=== PATIENT | female | born 2000 | race Caucasian/White ===

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

== ENCOUNTER → 2019-03-16 | Outpatient (CLI) | payer BC, MEDICAID ==
[2019-03-16 10:45] LABS: BASO # 0.1 10^3/uL (0.0-0.2); BASO % 0.6 % (0.0-1.0); EOS # 0.3 10^3/uL (0.0-0.50); EOS % 3.3 % (0.0-3.0); HEMATOCRIT 37.6 % (36.0-47.0); HEMOGLOBIN 12.5 g/dl (12.0-15.5); LYMPH # 2.2 10^3/uL (1.5-6.5); LYMPH % 27.1 % (24.0-44.0); MEAN CORPUSCULAR HEMOGLOBIN 28.6 pg (27.0-33.0); MEAN CORPUSCULAR HGB CONC 33.2 g/dl (32.0-36.5); MONO # 0.4 10^3/uL (0.0-0.8); MONO % 5.3 % (0.0-5.0); NEUTROPHILS # 5.1 10^3/uL (1.8-7.7); NEUTROPHILS % 63.5 % (36.0-66.0); PLATELET COUNT, AUTOMATED 319 10^3/uL (150-450); RED BLOOD COUNT 4.37 10^6/uL (4.00-5.40); WHITE BLOOD COUNT 8.1 10^3/uL (4.0-10.0)
[2019-03-16 11:18] LABS: ALBUMIN 3.5 GM/DL (3.2-5.2); ALT/SGPT 9 U/L (12-78); BILIRUBIN,TOTAL 0.4 MG/DL (0.2-1.0); BLOOD UREA NITROGEN 13 MG/DL (7-18); CALCIUM LEVEL 8.6 MG/DL (8.5-10.1); CARBON DIOXIDE LEVEL 27 MEQ/L (21-32); CHLORIDE LEVEL 106 MEQ/L (98-107); CREATININE FOR GFR 0.87 MG/DL (0.55-1.30); GLUCOSE, FASTING 103 MG/DL (70-100); POTASSIUM SERUM 3.9 MEQ/L (3.5-5.1); RHEUMATOID FACTOR QUANT < 10.0 IU/ML (<15.0); SODIUM LEVEL 140 MEQ/L (136-145); TOTAL 25(OH) VITAMIN D 21.3 NG/ML (30.0-100.0); TOTAL PROTEIN 7.2 GM/DL (6.4-8.2)
[2019-03-16 11:23] LABS: ERYTHROCYTE SEDIMENTATION RATE 20 mm/hr (0-20)
[2019-03-17 14:11] LABS: ANTINUCLEAR ANTIBODIES DIRECT Negative (Negative)
== END ==
LOC: M LAB 10:18
PROVIDERS: ATTEND Psychiatry & Neurology Neurology
DX: R51 Headache (principal)

== ENCOUNTER → 2019-05-20 | Outpatient (CLI) | payer BC ==
[2019-05-20 09:36] LABS: FREE T4 0.94 NG/DL (0.78-1.33)
[2019-05-20 09:42] LABS: HCG, SERUM QUALITATIVE NEGATIVE (NEGATIVE)
== END ==
LOC: M LAB 08:32
PROVIDERS: ATTEND Advanced Practice Midwife
DX: N92.6 Irregular menstruation, unspecified (principal)

== ENCOUNTER → 2021-06-14 | Outpatient (REF) | payer BC | LOC: M SFHCPLAZ 12:53 | PROVIDERS: ATTEND Family Medicine | DX: Z12.4 Encounter for screening for malignant neoplasm of cervix (principal); R87.610 Atypical squamous cells of undetermined significance on cytologic smear of cervix (ASC-US) | CPT/HCPCS: 87624; G0123 ==

== ENCOUNTER → 2021-08-24 | Outpatient (CLI) | payer BC ==
[2021-08-24 11:16] LABS: BASO % 0.4 % (0.0-1.0); EOS # 0.2 10^3/uL (0.0-0.5); EOS % 2.2 % (0.0-3.0); HEMATOCRIT 37.2 % (36.0-47.0); HEMOGLOBIN 11.9 g/dl (12.0-15.5); LYMPH # 1.6 10^3/uL (1.5-5.0); LYMPH % 23.8 % (24.0-44.0); MEAN CORPUSCULAR HEMOGLOBIN 28.3 pg (27.0-33.0); MEAN CORPUSCULAR VOLUME 88.6 fl (80.0-96.0); MONO # 0.5 10^3/uL (0.0-0.8); MONO % 7.2 % (2.0-8.0); NEUTROPHILS # 4.4 10^3/uL (1.5-8.5); NEUTROPHILS % 66.1 % (36.0-66.0); PLATELET COUNT, AUTOMATED 249 10^3/uL (150-450); WHITE BLOOD COUNT 6.7 10^3/uL (4.0-10.0)
[2021-08-24 12:19] LABS: HEPATITIS C VIRUS ABY INDEX < 0.0 INDEX (<0.8); HIV 1&2 SCREEN CENTAUR NEGATIVE (NEGATIVE)
[2021-08-24 13:38] LABS: GC DNA AMPLIFICATION NEGATIVE (NEGATIVE)
== END ==
LOC: M PLALAB 08:59
PROVIDERS: ATTEND Obstetrics & Gynecology
DX: Z86.69 Personal history of other diseases of the nervous system and sense organs (principal)

== ENCOUNTER 2021-09-17 20:27 | Emergency (ER) | payer BC ==
[~2021-09-17] VITALS: Ht 165.1 cm; Wt 64.5 kg
[2021-09-17 20:28] VITALS: BP 119/76
[2021-09-18] MEDS ORDERED: BUTA1CAP PO (12:30)
[2021-09-18] MEDS ORDERED: ZYRTTAB8 PO (12:30)
[2021-09-18] MEDS ORDERED: ONDA4TAB6 PO (19:00)
[2021-09-18] MEDS ORDERED: KETO10TAB PO (19:00)
== END 2021-09-17 22:15 | disposition left against medical advice (07) ==
LOC: M ED 20:27
DX: Z53.29 Procedure and treatment not carried out because of patient's decision for other reasons (principal)

== ENCOUNTER 2021-09-18 11:35 | Emergency (ER) | payer BC ==
[~2021-09-18] VITALS: Ht 165.1 cm; Wt 63.7 kg
--- OUTSIDE RECORDS SUMMARY | 2021-09-18 11:43 | CCD ---
Author Author [facility] Organization [facility] Address Unknown Phone Unavailable Care Team Providers Care Veterinarian Assistant Name Role Phone Uli SWAIN MD Unavailable Unavailable Uli SWAIN MD Unavailable Unavailable Uli SWAIN MD Unavailable Unavailable Uli SWAIN MD Unavailable Unavailable Uli SWAIN MD Unavailable Unavailable Uli SWAIN MD Unavailable Unavailable Uli SWAIN MD Unavailable Unavailable Uli SWAIN MD Unavailable Unavailable Uli SWAIN MD Unavailable Unavailable Uli SWAIN MD Unavailable Unavailable Uli SWAIN MD Unavailable Unavailable Uli SWAIN MD Unavailable Unavailable Uli SWAIN MD Unavailable Unavailable Uli SWAIN MD Unavailable Unavailable Uli SWAIN MD Unavailable Unavailable Uli SWAIN MD Unavailable Unavailable Uli SWAIN MD Unavailable Unavailable Uli SWAIN MD Unavailable Unavailable Uli SWAIN MD Unavailable Unavailable Uli SWAIN MD Unavailable Unavailable Uli SWAIN MD Unavailable Unavailable SWAIN, C GRAHAME MD Unavailable Unavailable SWAIN, C GRAHAME MD Unavailable Unavailable SWAIN, C GRAHAME MD Unavailable Unavailable SWAIN, C GRAHAME MD Unavailable Unavailable SWAIN, C GRAHAME MD Unavailable Unavailable SWAIN, C GRAHAME MD Unavailable Unavailable SWAIN, C GRAHAME MD Unavailable Unavailable SWAIN, C GRAHAME MD Unavailable Unavailable SWAIN, C GRAHAME MD Unavailable Unavailable SWAIN, C GRAHAME MD Unavailable Unavailable SWAIN, C GRAHAME MD Unavailable Unavailable SWAIN, C GRAHAME MD Unavailable Unavailable SWAIN, C GRAHAME MD Unavailable Unavailable SWAIN, C GRAHAME MD Unavailable Unavailable SWAIN, C GRAHAME MD Unavailable Unavailable SWAIN, C GRAHAME MD Unavailable Unavailable SWAIN, C GRAHAME MD Unavailable Unavailable SWAIN, C GRAHAME MD Unavailable Unavailable SWAIN, C GRAHAME MD Unavailable Unavailable SWAIN, C GRAHAME MD Unavailable Unavailable SWAIN, C GRAHAME MD Unavailable Unavailable SWAIN, C GRAHAME MD Unavailable Unavailable SWAIN, C GRAHAME MD Unavailable Unavailable SWAIN, C GRAHAME MD Unavailable Unavailable SWAIN, C GRAHAME MD Unavailable Unavailable SWAIN C GRAHAME MD Unavailable Unavailable SWAIN, C GRAHAME MD Unavailable Unavailable SWAIN C GRAHAME MD Unavailable Unavailable SWAIN, C GRAHAME MD Unavailable Unavailable SWAIN C GRAHAME MD Unavailable Unavailable SWAIN, C GRAHAME MD Unavailable Unavailable SWAIN C GRAHAME MD Unavailable Unavailable SWAIN C GRAHAME MD Unavailable Unavailable SWAIN C GRAHAME MD Unavailable Unavailable SWAIN C GRAHAME MD Unavailable Unavailable SWAIN C GRAHAME MD Unavailable Unavailable SWAIN C GRAHAME MD Unavailable Unavailable SWAIN, C GRAHAME MD Unavailable Unavailable SWAIN, C GRAHAME MD Unavailable Unavailable SWAIN, C GRAHAME MD Unavailable Unavailable PICKERAL JR J GILL PA-C Unavailable Unavailable PICKERAL JR J GILL PA-C Unavailable Unavailable PICKERAL JR J GILL PA-C Unavailable Unavailable PICKERAL JR J GILL PA-C Unavailable Unavailable PICKERAL JR J GILL PA-C Unavailable Unavailable PICKERAL JR J GILL PA-C Unavailable Unavailable PICKERAL JR J GILL PA-C Unavailable Unavailable PICKERAL JR J GILL PA-C Unavailable Unavailable PICKERAL JR, J GILL PA-C Unavailable Unavailable PICKERAL JR, J GILL PA-C Unavailable Unavailable PICKERAL JR, J GILL PA-C Unavailable Unavailable PICKERAL JR, J GILL PA-C Unavailable Unavailable PICKERAL JR, J GILL PA-C Unavailable Unavailable PICKERAL JR, J GILL PA-C Unavailable Unavailable PICKERAL JR, J GILL PA-C Unavailable Unavailable PICKERAL JR, J GILL PA-C Unavailable Unavailable PICKERAL JR, J GILL PA-C Unavailable Unavailable PICKERAL JR, J GILL PA-C Unavailable Unavailable PICKERAL JR, J GILL PA-C Unavailable Unavailable PICKERAL JR, J GILL PA-C Unavailable Unavailable PICKERAL JR, J GILL PA-C Unavailable Unavailable PICKERAL JR, J GILL PA-C Unavailable Unavailable PICKERAL JR, J GILL PA-C Unavailable Unavailable PICKERAL JR, J GILL PA-C Unavailable Unavailable PICKERAL JR, J GILL PA-C Unavailable Unavailable PICKERAL JR, J GILL PA-C Unavailable Unavailable PICKERAL JR, J GILL PA-C Unavailable Unavailable RUSTY, JENNY LAY Unavailable Unavailable RUSTY, JENNY LAY Unavailable Unavailable RUSTY, JENNY LAY Unavailable Unavailable RUSTY, JENNY LAY Unavailable Unavailable RUSTY, JENNY LAY Unavailable Unavailable RUSTY, JENNY LAY Unavailable Unavailable RUSTY, JENNY LAY Unavailable Unavailable RUSTY, JENNY LAY Unavailable Unavailable RUSTY, JENNY LAY Unavailable Unavailable RUSTY, JENNY LAY Unavailable Unavailable RUSTY, JENNY LAY Unavailable Unavailable RUSTY, JENNY LAY Unavailable Unavailable RUSTY, JENNY LAY Unavailable Unavailable RUSTY, JENNY LAY Unavailable Unavailable RUSTY, JENNY ALY Unavailable Unavailable RUSTY, JENNY LAY Unavailable Unavailable RUSTY, JENNY LAY Unavailable Unavailable RUSTY, JENNY LAY Unavailable Unavailable RUSTY, JENNY LAY Unavailable Unavailable RUSTY, JENNY LAY Unavailable Unavailable RUSTY, JENNY LAY Unavailable Unavailable RUSTY, JENNY LAY Unavailable Unavailable RUSTY, JENNY LAY Unavailable Unavailable RUSTY, JENNY LAY Unavailable Unavailable RUSTY, JENNY LAY Unavailable Unavailable RUSTY, JENNY LAY Unavailable Unavailable RUSTY, JENNY LAY Unavailable Unavailable RUSTY, JENNY LAY Unavailable Unavailable RUSTY, JENNY LAY Unavailable Unavailable RUSTY, JENNY LAY Unavailable Unavailable RUSTY, JENNY LAY Unavailable Unavailable RUSTY, JENNY LAY Unavailable Unavailable RUSTY, JENNY LAY Unavailable Unavailable RUSTY, JENNY LAY Unavailable Unavailable RUSTY, JENNY LAY Unavailable Unavailable RUSTY, JENNY LAY Unavailable Unavailable RUSTY, JENNY LAY Unavailable Unavailable RUSTY, JENNY LAY Unavailable Unavailable RUSTY, JENNY LAY Unavailable Unavailable RUSTY, JENNY LAY Unavailable Unavailable RUSTY, JENNY LAY Unavailable Unavailable RUSTY, JENNY LAY Unavailable Unavailable RUSTY, JENNY LAY Unavailable Unavailable TURRIN, JUSTO Unavailable Unavailable TURRIN, JUSTO Unavailable Unavailable TURRIN, JUSTO Unavailable Unavailable TURRIN, JUSTO Unavailable Unavailable Skipton, E Sadie MD Unavailable Unavailable Skipton, E Sadie MD Unavailable Unavailable Skipton, E Sadie MD Unavailable Unavailable Skipton, E Sadie MD Unavailable Unavailable Skipton, E Sadie MD Unavailable Unavailable Skipton, E Sadie MD Unavailable Unavailable Skipton, E Sadie MD Unavailable Unavailable Skipton, E Sadie MD Unavailable Unavailable Skipton, E Sadie MD Unavailable Unavailable Skipton, E Sadie MD Unavailable Unavailable Skipton, E Sadie MD Unavailable Unavailable Skipton, E Sadie MD Unavailable Unavailable Skipton, E Sadie MD Unavailable Unavailable Skipton, E Sadie MD Unavailable Unavailable Skipton, E Sadie MD Unavailable Unavailable Skipton, E Sadie MD Unavailable Unavailable Skipton, E Sadie MD Unavailable Unavailable Skipton, E Sadie MD Unavailable Unavailable Skipton, E Sadie MD Unavailable Unavailable Skipton, E Sadie MD Unavailable Unavailable Skipton, E Sadie MD Unavailable Unavailable Skipton, E Sadie MD Unavailable Unavailable Skipton, E Sadie MD Unavailable Unavailable Skipton, E Sadie MD Unavailable Unavailable Skipton, E Sadie MD Unavailable Unavailable Skipton, E Sadie MD Unavailable Unavailable Skipton, E Sadie MD Unavailable Unavailable Skipton, E Sadie MD Unavailable Unavailable Skipton, E Sadie MD Unavailable Unavailable Skipton, E Sadie MD Unavailable Unavailable Skipton, E Sadie MD Unavailable Unavailable Skipton, E Sadie MD Unavailable Unavailable Skipton, E Sadie MD Unavailable Unavailable Skipton, E Sadie MD Unavailable Unavailable Skipton, E Sadie MD Unavailable Unavailable Skipton, E Sadie MD Unavailable Unavailable Skipton, E Sadie MD Unavailable Unavailable Skipton, E Sadie MD Unavailable Unavailable Skipton, E Sadie MD Unavailable Unavailable Skipton, E Sadie MD Unavailable Unavailable Skipton, E Sadie MD Unavailable Unavailable Skipton, E Sadie MD Unavailable Unavailable Skipton, E Sadie MD Unavailable Unavailable Skipton, E Sadie MD Unavailable Unavailable Skipton, E Sadie MD Unavailable Unavailable Skipton, E Sadie MD Unavailable Unavailable Skipton, E Sadie MD Unavailable Unavailable Skipton, E Sadie MD Unavailable Unavailable Skipton, E Sadie MD Unavailable Unavailable Skipton, E Sadie MD Unavailable Unavailable Skipton, E Sadie MD Unavailable Unavailable Skipton, E Sadie MD Unavailable Unavailable Skipton, E Sadie MD Unavailable Unavailable Skipton, E Sadie MD Unavailable Unavailable Skipton, E Sadie MD Unavailable Unavailable Skipton, E Sadie MD Unavailable Unavailable Skipton, E Sadie MD Unavailable Unavailable Skipton, E Sadie MD Unavailable Unavailable Skipton, E Sadie MD Unavailable Unavailable Skipton, E Sadie MD Unavailable Unavailable Re-disclosure Warning The records that you are about to access may contain information from federally-assisted alcohol or drug abuse programs. If such information is present, then the following federally mandated warning applies: This information has been disclosed to you from records protected by federal confidentiality rules (42 CFR part 2). The federal rules prohibit you from making any further disclosure of this information unless further disclosure is expressly permitted by the written consent of the person to whom it pertains or as otherwise permitted by 42 CFR part 2. A general authorization for the release of medical or other information is NOT sufficient for this purpose. The Federal rules restrict any use of the information to criminally investigate or prosecute any alcohol or drug abuse patient.The records that you are about to access may contain highly sensitive health information, the redisclosure of which is protected by Article 27-F of the [facility] Public Health law. If you continue you may have access to information: Regarding HIV / AIDS; Provided by facilities licensed or operated by the [facility] Office of Mental Health; or Provided by the [facility] Office for People With Developmental Disabilities. If such information is present, then the following [facility] mandated warning applies: This information has been disclosed to you from confidential records which are protected by state law. State law prohibits you from making any further disclosure of this information without the specific written consent of the person to whom it pertains, or as otherwise permitted by law. Any unauthorized further disclosure in violation of state law may result in a fine or long-term sentence or both. A general authorization for the release of medical or other information is NOT sufficient authorization for further disc losure. Family History Family Member Name Family Member Gender Family Member Status Date o f Status Description Data Source(s) Unknown Unknown Problem [facility]ENT ([facility]) Unknown Female Problem MEDENT ([facility]) Encounters Encounter Providers Location Date Indications Data Source(s ) Emergency Attender: JUSTO REALConsultant: Sadie metz MD 09/17/2021 10:56:00 PM EST - 09/18/2021 12:36:00 AM EST [facility] Patient discharged. Outpatient Attender: GILL webb 09/16/2021 07:25:00 AM EST MEDENT ([facility] ( [facility]) [facility] OB [address] [place] [address] 08/24/2021 12:00:00 AM EDT eCW1 ([facility]) Outpatient Attender: JENNY OJEDA MD Main office - [facility] n 08/06/2021 03:30:00 PM EDT MEDENT ([facility]) Unknown [address] [facility] [place] [address] 08/06/2021 12:00:00 AM EDT eCW1 [facility]) Outpatient Attender: SOULEYMANE SWAIN MD [id number] 08/02/2021 12:00:00 AM [facility] Unknown [address] [place] [address] 06/21/2021 12:00:00 AM EDT eCW1 ([facility]) Outpatient [address] [facility] [place] [address] 06/15/2021 12:00:00 AM EDT eCW1 ([facility]) Outpatient [address] [facility] [place] [address] 06/14/2021 12:00:00 AM EDT eCW1 ([facility]) Outpatient Attender: JENNY OJEDA MD Main office - [facility] n 06/04/2021 10:45:00 AM EDT MEDENT ([facility]) Outpatient Attender: JENNY OJEDA MD Main office - [facility] n 12/26/2020 06:45:00 AM EST MEDENT ([facility]) Immunizations Vaccine Date Status Description Data Source(s) Tdap 06/14/2021 09:32:00 AM EDT completed e CW1 ([facility]) Tdap 06/14/2021 09:32:00 AM EDT completed e CW1 ([facility]) Tdap 06/14/2021 09:32:00 AM EDT completed e CW1 ([facility]) Tdap 06/14/2021 09:32:00 AM EDT completed e CW1 ([facility]) Tdap 06/14/2021 09:32:00 AM EDT completed e CW1 ([facility]) COVID-19 VACCINE Moderna 01/16/2021 12:00:00 AM EDT completed [facility] Vaccine Series Complete: YESThis Data wa s Submitted to [facility] Via [employer]. COVID-19 VACCINE, MRNA-1273, LNP-S (MODERNA)/PF 01/16/2021 1 2:00:00 AM EDT completed [facility] COVID-19 VACCINE Moderna 12/22/2020 12:00:00 AM EST completed [facility] Vaccine Series Complete: NOThis Data was Submitted to [facility] Via [employer]. COVID-19 VACCINE, MRNA-1273, LNP-S (MODERNA)/PF 12/22/2020 1 2:00:00 AM EST completed [facility] Medications Medication Brand Name Start Date Product Form Dose Route Admi nistrative Instructions Pharmacy Instructions Status Indications Reaction Description Data Source(s) 500 mg 09/16/2021 12:00:00 AM EST tablet 5 TAKE ONE TABLET BY MOUTH EVERY DAY FOR 5 DAYS TAKE ONE TABLET BY MOUTH EVERY DAY FOR 5 DAYS SOLD: 09/16/2021 [facility] Azithromycin 500 MG Oral Tablet Azithromycin 09/16/2021 12:00:[address] ORAL active MEDENT ([facility]) Acetaminophen 325 MG / butalbital 50 MG / Caffeine 40 MG Oral Capsule Phyqinnebt-YYOL-Vziwlyxz 50-325-40 MG Ctpilkpumf-QJLF-Etacvuwb 50-325-40 MG 08/24/2021 12:00:00 AM EDT 1.0 {capsule_as_needed} active Wyyljwvgnb-VLQR-Jikpcicf 50-325-40 MG eCW1 ([facility]) doxylamine succinate 10 MG / Pyridoxine Hydrochloride 10 MG Delayed Release Oral Tablet Doxylamine-Pyridoxine 10-10 MG Doxylamine-Pyridoxine 10-10 MG 08/24/2021 12:00:00 AM EDT active Doxylami ne-Pyridoxine 10-10 MG eCW1 ([facility]) Acetaminophen 325 MG / butalbital 50 MG / Caffeine 40 MG Oral Capsule 50-325-40 mg BUTALB/ACETAMINOPHEN/CAFFEINE 08/24/2021 12:00:00 AM EDT capsule 3 0 TAKE ONE CAPSULE BY MOUTH EVERY 4 HOURS NEEDED TAKE ONE CAPSULE BY MOUTH EVERY 4 HOURS NEEDED SOLD: 08/24/2021 [facility] 60 mcg (15 mcg x 4)/0.5 mL 08/14/2021 12:00:00 AM EDT syring e 0 INJECT DIRECTED INJECT DIRECTED SOLD: 08/14/2021 [facility] Cyclobenzaprine hydrochloride 5 MG Oral Tablet CYCLOBENZAPRI NE HCL 06/04/2021 12:00:00 AM EDT tablet 30 TAKE ONE TABLET BY MOUTH EVERY DAY NEEDED TAKE ONE TABLET BY MOUTH EVERY DAY NEEDED SOLD: 06/20/2021 [facility] 800 mg 05/28/2021 12:00:00 AM EDT tablet 14 TAKE ONE TABLET BY MOUTH TWICE A DAY NEEDED FOR HEAD AND NECK PAIN OR HEADACHES TAKE ONE TABLET BY MOUTH TWICE A DAY NEEDED FOR HEAD AND NECK PAIN OR HEADACHES SOLD: 05/29/2021 [facility] Cyclobenzaprine hydrochloride 5 MG Oral Tablet CYCLOBENZAPRI NE HCL 04/10/2021 12:00:00 AM EDT tablet 30 TAKE ONE TABLET BY MOUTH EVERY DAY NEEDED TAKE ONE TABLET BY MOUTH EVERY DAY NEEDED SOLD: 04/22/2021 [facility] Volnea 28 Day Pack 0.15-0.02 mgx21 /0.01 mg x 5 DESOG-E.ESTR ADIOL/E.ESTRADIOL 03/30/2021 12:00:00 AM EDT tablet 84 TAKE ONE TABLE T BY MOUTH EVERY DAY TAKE ONE TABLET BY MOUTH EVERY DAY SOLD: 04/03/2021 [facility] 300 mg 03/08/2021 12:00:00 AM EDT capsule 14 TAKE ONE CAPSULE BY MOUTH EVERY 12 HOURS FOR 7 DAYS TAKE ONE CAPSULE BY MOUTH EVERY 12 HOURS FOR 7 DAYS SO LD: 03/08/2021 [facility] 800 mg 01/29/2021 12:00:00 AM EDT tablet 14 TAKE ONE TABLET BY MOUTH TWICE A DAY NEEDED FOR HEAD AND NECK PAIN OR HEADACHES TAKE ONE TABLET BY MOUTH TWICE A DAY NEEDED FOR HEAD AND NECK PAIN OR HEADACHES SOLD: 01/31/2021 [facility] 800 mg 01/29/2021 12:00:00 AM EDT tablet 14 TAKE ONE TABLET BY MOUTH TWICE A DAY NEEDED FOR HEAD AND NECK PAIN OR HEADACHES TAKE ONE TABLET BY MOUTH TWICE A DAY NEEDED FOR HEAD AND NECK PAIN OR HEADACHES SOLD: 02/21/2021 [facility] Cyclobenzaprine hydrochloride 5 MG Oral Tablet CYCLOBENZAPRI NE HCL 12/26/2020 12:00:00 AM EST tablet 30 TAKE ONE TABLET BY MOUTH EVERY DAY NEEDED TAKE ONE TABLET BY MOUTH EVERY DAY NEEDED SOLD: 12/27/2020 [facility] Cyclobenzaprine hydrochloride 5 MG Oral Tablet Cyclobenzapri ne HCL 12/26/2020 12:00:00 AM EST active David MCCLOUD ([facility] ) Cyclobenzaprine hydrochloride 5 MG Oral Tablet CYCLOBENZAPRI NE HCL 12/26/2020 12:00:00 AM EST tablet 30 TAKE ONE TABLET BY MOUTH EVERY DAY NEEDED TAKE ONE TABLET BY MOUTH EVERY DAY NEEDED SOLD: 02/28/2021 [facility] Volnea 28 Day Pack 0.15-0.02 mgx21 /0.01 mg x 5 DESOGE STREL-ETHINYL ESTRADIOL/ETHINYL ESTRADIOL 12/25/2020 12:00:00 AM EST tablet 84 TAKE ONE TABLET BY MOUTH EVERY DAY TAKE ONE TABLET BY MOUTH EVERY DAY SOLD: 12/25/2020 [facility] 800 mg 11/03/2020 12:00:00 AM EST tablet 14 TAKE ONE TABLET BY MOUTH TWICE A DAY NEEDED FOR HEAD AND NECK PAIN OR HEADACHES TAKE ONE TABLET BY MOUTH TWICE A DAY NEEDED FOR HEAD AND NECK PAIN OR HEADACHES SOLD: 11/06/2020 [facility] 800 mg 11/03/2020 12:00:00 AM EST tablet 14 TAKE ONE TABLET BY MOUTH TWICE A DAY NEEDED FOR HEAD AND NECK PAIN OR HEADACHES TAKE ONE TABLET BY MOUTH TWICE A DAY NEEDED FOR HEAD AND NECK PAIN OR HEADACHES SOLD: 01/01/2021 [facility] 100 mg 05/16/2020 12:00:00 AM EDT capsule 60 TAKE ONE CAPSULE BY MOUTH TWICE A DAY TAKE ONE CAPSULE BY MOUTH TWICE A DAY SOLD: 02/28/2021 [facility] 50 mg 05/16/2020 12:00:00 AM EDT capsule 60 TAKE ONE CAPSULE BY MOUTH TWICE A DAY TAKE ONE CAPSULE BY MOUTH TWICE A DAY SOLD: 02/28/2021 [facility] 100 mg 05/16/2020 12:00:00 AM EDT capsule 60 TAKE ONE CAPSULE BY MOUTH TWICE A DAY TAKE ONE CAPSULE BY MOUTH TWICE A DAY SOLD: 01/10/2021 [facility] 800 mg 05/15/2020 12:00:00 AM EDT tablet 14 TAKE ONE TABLET BY MOUTH TWICE A DAY NEEDED FOR HEAD AND NECK PAIN OR HEADACHES MAXIMUM DAILY DOSE =2 TAKE ONE TABLET BY MOUTH TWICE A DAY NEEDED FOR HEAD AND NECK PAIN OR HEADACHES MAXIMUM DAILY DOSE =2 SOLD: 09/06/2020 [facility] 0.15-0.02 mgx21 /0.01 mg x 5 02/10/2020 12:00:00 AM EDT tabl et 84 TAKE ONE TABLET BY MOUTH EVERY DAY TAKE ONE TABLET BY MOUTH EVERY DAY SOLD: 07/24/2020 [facility] 0.15-0.02 mgx21 /0.01 mg x 5 02/10/2020 12:00:00 AM EDT tabl et 84 TAKE ONE TABLET BY MOUTH EVERY DAY TAKE ONE TABLET BY MOUTH EVERY DAY SOLD: 10/23/2020 [facility] 100 mg 01/12/2020 12:00:00 AM EDT capsule 60 TAKE ONE CAPSULE BY MOUTH TWICE A DAY TAKE ONE CAPSULE BY MOUTH TWICE A DAY SOLD: 09/29/2020 [facility] 50 mg 01/11/2020 12:00:00 AM EDT capsule 60 TAKE ONE CAPSULE BY MOUTH TWICE A DAY (TAKEN WITH 100MG CAPSULES) TAKE ONE CAPSULE BY MOUTH TWICE A DAY (T AKEN WITH 100MG CAPSULES) SOLD: 01/10/2021 [facility] 50 mg 01/11/2020 12:00:00 AM EDT capsule 60 TAKE ONE CAPSULE BY MOUTH TWICE A DAY (TAKEN WITH 100MG CAPSULES) TAKE ONE CAPSULE BY MOUTH TWICE A DAY (T AKEN WITH 100MG CAPSULES) SOLD: 09/29/2020 [facility] Insurance Providers Payer name Policy type / Coverage type Policy ID Covered democrat ID Covered democrat's relationship to lewis Policy Lewis Plan Information [facility] Health Maintenance Organization (O) [id number] Family Dependent [id number] [employer] Commercial [id number] Family Dependent [id number] Blue Shield Commercial [id number] Family Dependent [id number] Blue Shield Commercial [id number] Family Dependent [id number] Blue Shield Commercial [id number] Family Dependent [id number] EXCELLUS C [id number] Child [id number] EXCELLUS H [id number] Child [id number] BS [place] [employer] FEDERAL [id number] FA2 [id number] BS [employer] Commercial [id number] Family Dependent EXCELLUS [facility] [id number] FA2 [id number] [facility] EM[employer]EE PRO[employer] [id number] FA2 [id number] ANSI-Commercial [id number] MEDICAID [id number] SP [id number] [facility] [facility] Health Maintenance Organization (HMO) [id number] Family Dependent [id number] Medicaid [place] Medigap Part B [id number] Self [id number] BLUE [employer] BLUE SHIELD FEDERAL -O/P [id number] [facility] Blue Shield Commercial [id number] Family Dependent [id number] Medicaid [place] Medigap Part B [id number] Self [id number] [facility] Health Maintenance Organization (HMO) [id number] Family Dependent [id number] [facility] [place] [employer] FEDERAL B [id number] C [id number] [employer] DOI 10/06/12 SP DOI 10/06/12 [facility] FEDERAL EMPLOYEE PROGRAM [id number] FA2 [id number] [facility] Health Maintenance Organization (HMO) [id number] Family Dependent [id number] Medicaid [place] Medigap Part B [id number] Self [id number] Medicaid [place] Medigap Part B [id number] Self [id number] [facility] Health Maintenance Organization (HMO) [id number] Dependent [id number] Problems, Conditions, and Diagnoses Code Display Name Description Problem Type Effective Dates Data Source(s) Z34.80 care Supervision of other normal Jessica jarquin 08/21/2021 12:00:00 AM EDT eCW1 ([facility]) Surgeries/Procedures Procedure Description Date Indications Data Source(s) OFFICE OUTPATIENT VISIT 15 MINUTES 09/16/2021 12:00:00 AM EST MEDENT ([facility]) OFFICE OUTPATIENT VISIT 25 MINUTES 08/06/2021 12:00:00 AM EDT MEDENT ([facility] ) Injection For Nerve Block, Greater Occipital Nerve 06/28/2021 12:00:00 AM EDT MEDENT ([facility], ) INJECTION ANES OTHER PERIPHERAL NERVE/BRANCH 12:00:00 AM EDT MEDENT ([facility], ) TDAP VACCINE 7/> YR IM 06/14/2021 12:00:00 AM EDT eCW1 ([facility]) OFFICE OUTPATIENT VISIT 25 MINUTES 06/04/2021 12:00:00 AM EDT MEDENT ([facility] ) Injection For Nerve Block, Greater Occipital Nerve 05/28/2021 12:00:00 AM EDT MEDENT ([facility] ) INJECTION ANES OTHER PERIPHERAL NERVE/BRANCH 12:00:00 AM EDT MEDENT ([facility], ) Injection For Nerve Block, Greater Occipital Nerve 04/27/2021 12:00:00 AM EDT MEDENT ([facility], ) INJECTION ANES OTHER PERIPHERAL NERVE/BRANCH 12:00:00 AM EDT MEDENT ([facility] ) Injection For Nerve Block, Greater Occipital Nerve 03/28/2021 12:00:00 AM EDT MEDENT ([facility] ) INJECTION ANES OTHER PERIPHERAL NERVE/BRANCH 12:00:00 AM EDT MEDENT ([facility], ) Injection For Nerve Block, Greater Occipital Nerve 02/21/2021 12:00:00 AM EDT MEDENT ([facility], ) INJECTION ANES OTHER PERIPHERAL NERVE/BRANCH 12:00:00 AM EDT MEDENT ([facility] ) Magnetic Resonance Angiogtaphy Head W/O Contrast Material(S) 02/08/2021 12:00:00 AM EDT MED[facility] ([facility] [facility]) Magnetic Resonance Angiogtaphy Head W/O Contrast Material(S) 02/08/2021 12:00:00 AM EDT [facility] ([facility]) Magnetic Resonance Angiography Neck W/O Contrast Materials 02/08/2021 12:00:00 AM EDT [facility] ([facility]) Magnetic Resonance Angiography Neck W/O Contrast Materials 02/08/2021 12:00:00 AM EDT [facility] ([facility]) Injection For Nerve Block, Greater Occipital Nerve 01/23/2021 12:00:00 AM EDT [facility] ([facility] ) INJECTION ANES OTHER PERIPHERAL NERVE/BRANCH 1 12:00:00 AM EDT [facility] ([facility] ) OFFICE OUTPATIENT VISIT 25 MINUTES 12/26/2020 12:00:00 AM EST [facility] ([facility] ) Injection For Nerve Block, Greater Occipital Nerve 11/03/2020 12:00:00 AM EST [facility] ([facility] ) INJECTION ANES OTHER PERIPHERAL NERVE/BRANCH 1 12:00:00 AM EST [facility] ([facility] ) Injection For Nerve Block, Greater Occipital Nerve 09/06/2020 12:00:00 AM EST [facility] ([facility] ) INJECTION ANES OTHER PERIPHERAL NERVE/BRANCH 0 12:00:00 AM EST [facility] ([facility] ) Injection For Nerve Block, Greater Occipital Nerve 08/04/2020 12:00:00 AM EDT [facility] ([facility] ) INJECTION ANES OTHER PERIPHERAL NERVE/BRANCH 0 12:00:00 AM EDT [facility] ([facility] ) Results ID Date Data Source [id number] 09/17/2021 10:56:00 PM EST [facility] 1 OrderSheet [facility] Emergency Department [address] [place] [address] Phone #: ext- [phone] 09/17/2021 22:46 Patient: TRINY ORELLANA Sex: F : 2000 Age: 21yWEIGHT:64.4 kg HEIGHT:65 inches BMI:23.7ALLERGIES: PenicillinsCHIEF COMPLAINT: headache, migraine HADIAGNOSIS: Acute recurrent migraine headache without aura- poorly controlled. No status migrainosus.Second trimester ; positive test in emergency department. (13 weeks).LAB ORDERSOrder Description Priority Entered Acknowledged InitialedDIAGNOSTIC STUDY ORDERSOrder Description Priority Entered Acknowledged InitialedMEDICATION/IV/DRIP/FLUID ORDERSOrder Description Priority Entered Acknowledged InitialedNS IV 1000 mL 23:31 09/17/2021 Ack'd: 23:35 23:40 aNn,Bolus: : Bolus 1000 Justo Real Katelyn KatelynmL (X1) Leroy;Reglan 10 mg IVP 23:31 09/17/2021 Ack'd: 23:35 23:40 Nan,X1 dose: 10 mg Justo Real Katelyn Katelyn(NOW x1) Leroy;GENERAL ORDERSOrder Description Priority Entered Acknowledged Initialed[Electronically signed by Jyothi Montana (00:36 09/18/2021)][Electronically signed by Justo Real M.D. (00:43 09/18/2021)][Electronically locked by Jyothi Montana (00:36 09/18/2021)] Name Value Range Interpretation Code Description Data Kendra rce(s) Supporting Document(s) ID Date Data Source [id number] 09/17/2021 10:56:00 PM EST [facility] 1 Medication Reconciliation Report [facility] Emergency Department [address] [place] [address] Phone #: ext- [phone] 09/17/2021 22:46 Patient: TRINY ORELLANA Sex: F : 2000 Age: 21yWeight: 64.4 kgHeight/Length: 65 in.BMI: 23.7ALLERGIES: PenicillinsThe patient's Home Medications are listed below:CONTINUE TAKING THE FOLLOWING MEDICATIONS: Cetirizine HCl OralThe source(s) of the original Home Medication information:Not obtained.The following Medications were given to the patient in the Emergency Department:IV NS IV Fluids bolus 1000 mL over 35 minute(s), administered: 23:40 09/17/2021eglan [IVP] IVP 10 mg, administered: 23:40 09/17/2021The following Medications were prescribed to the patient:Reglan 10 mg tablet Take 1 tablet four times a day as needed for 5 days -- Dispense 20 tablet. Refills: 2.Substitution permitted.Pharmacy - [id number] - [address] ; [place], [place] [id number]. . -- Justo Real M.D. Name Value Range Interpretation Code Description Data Kendra rce(s) Supporting Document(s) ID Date Data Source [id number] 09/17/2021 10:56:00 PM [place] [address] Medication Administration Record [facility] Emergency Department [address] [place] [address] Phone #: ext- [phone] 09/17/2021 22:46 Patient: TRINY ORELLANA Sex: F : 2000 Age: 21yWeight: 64.4 kgHeight/Length: 65 inBMI: 23.7ALLERGIES: Penicillins Date/Time Medication Administered Medication OrderedStart IV NS NS IV 1000 mL Bolus: : Bolus 580202:[id number] 09/17/2021 Dose: IV Fluids mL (X1)Jyothi Montana, Bolus: 1000 mL over 35 minute(s)---- Dispensed: 1000 mL bagStop Site: #1 left AC00:19 09/18/2021Jyothi katz,Given REGLAN [IVP] (METOCLOPRAMIDE Reglan 10 mg IVP X1 dose: 10 mg23:40 09/17/2021 HCL) (NOW x1)Jyothi Montana, Dose: 10 mg IVP Site: #1 left AC Name Value Range Interpretation Code Description Data Kendra rce(s) Supporting Document(s) ID Date Data Source [id number] 09/17/2021 10:56:00 PM [facility] 1 General Instructions [facility] Emergency Department [address] [place] [address] Phone #: ext- [phone] 09/17/2021 22:46 Patient: TRINY ORELLANA Sex: F : 2000 Age: 21ySecond trimester ; positive test in emergency department. (13 weeks).Acute recurrent migraine headache without aura- poorly controlled. No status migrainosus.INSTRUCTIONSDo not smoke. No alcohol.Warnings: Further evaluation is necessary. It is very important to follow up with a healthcare provider.GENERAL WARNINGS: Return or contact your physician immediately if your condition worsens orchanges unexpectedly, if not improving as expected, or if other problems arise. SPECIFICALLY, return ifyou develop fever, vomiting, numbness, weakness, difficulty thinking, visual disturbances, fainting orextreme fatigue.Your Current Medications: Your current home medications have been reviewed.CONTINUE TAKING THE FOLLOWING MEDICATIONS:Cetirizine HCl Oral.Prescription Medications:Reglan 10 mg tablet Take 1 tablet four times a day as needed for 5 days -- Dispense 20 tablet. Refills: 2.Substitution permitted.Pharmacy - [id number] - [address] [place], [place] [id number]. .Follow-up:Return to the emergency department as needed. Follow up with your healthcare provider in three dayseven if well. Call for an appointment. Reason for referral: evaluation and treatment. Summary of careprovided to patient via paper. Follow up with an human geography instructor in three days even if well. Call for anappointment. Reason for referral: evaluation and treatment. Summary of care provided to patient via paper.Understanding of the discharge instructions verbalized by patient. Expected course of illness, dischargeinstructions, activity level, diet, prescriptions x1, follow-up appointment and risks and benefits of dali tmentreviewed with patient and understanding verbalized. Agrees to plan of care. ADDITIONAL INFORMATIONMigraine Headache 2 General Instructions [facility] Emergency Department [address] [place] [address] Phone #: [phone]- [phone] 09/17/2021 22:46 Patient: TRINY ORELLANA Sex: F : 2000 Age: 21yA migraine headache is an often severe type of headache. It's different from other types ofheadaches in that symptoms other than pain occur with the it. For instance, a classic migraineheadache means visual symptoms (or aura) such as flashes of light, blind spots or other visionchanges, warns you a headache is coming on. Nausea and vomiting, lightheadedness, sensitivity tolight or sound, and other visual disturbances are common migraine symptoms. The pain may lastfrom a few hours to several days. It's not clear why migraines occur, but certain factors called triggerscan raise the risk of having a migraine attack. A migraine may be triggered by emotional stress ordepression, or by hormone changes during the menstrual cycle. Other triggers include certain birthcontrol pills, overuse of migraine medicines, alcohol or caffeine, foods with tyramine such as agedcheese and wine, eyestrain, weather changes, missed meals, or too little or too much sleep.Home careFollow these tips when taking care of yourself at home: Don't drive yourself home if you were given pain medicine for your headache or are having visual symptoms. Instead, have someone else drive you home. Try to sleep when you get home. You should feel much better when you wake up. Cold can help ease migraine symptoms. Put an ice pack wrapped in a thin towel on your forehead or at the base of your skull. Put heat on the back of your neck to help ease any neck spasm. Drink only clear liquids or eat a light diet until your symptoms get better. Thi s will help you prevent nausea and vomiting.How to prevent migrainesPay attention to what seems to trigger your headache. Try to stay away from the triggers when youcan. If you have headaches often, consider keeping a headache diary. In it, write down what youwere doing, feeling, or eating in the hours before each headache. Show this to your healthcareprovider to help find the cause of your headaches.If stress seems to be a trigger for your headaches, figure out what is causing stress in your life. Learnnew ways to handle your stress. Ideas include regular exercise, biofeedback, self-hypnosis, yoga,and meditation. Talk with your healthcare provider to find out more information about managingstress. Many books and digital media are also available on this subject.Tyramine is a substance found in many foods. It can trigger a migraine in some people. These foodscontain tyramine: Chocolate Yogurt 3 General Instructions [facility] Emergency Department [address] [place] [address] Phone #: ext- [phone] 09/17/2021 22:46 Patient: TRINY ORELLANA Sex: F : 2000 Age: 21y All cheeses, but especially aged cheeses Smoked or pickled fish and meat, including benitez, caviar, bologna, pepperoni, and salami Liver Avocados Bananas Figs Raisins Red wineTry staying away from these foods for 1 to 2 months to see if you have fewer headaches.How to treat future headaches Take time out at the first sign of a headache, if possible. Find a quiet, dark, comfortable place to sit or lie down. Let yourself relax or sleep. Put an ice pack wrapped in a thin towel on your forehead or on the area of greatest pain. A heating pad and massage may help if you are having a muscle spasm and tightness in your neck. If you have been prescribed a medicine to stop a migraine headache, use this at the first warning sign of the headache for be st results. First signs may be an aura or pain. If you have been prescribed a medicine to prevent the headaches, it's important to take the medicine as directed. Many of these medicines may take a few weeks to start preventing headaches, so it's important to not give up on them right away. If you continue to have just as many headaches after taking these medicines for a while, talk with your doctor to see if the dose needs to be changed or if a different medicine is advised. If you need to take medicine often for your migraine, talk with your healthcare provider about other ways to prevent your headaches.Follow-up careFollow up with your healthcare provider, or as advised. Talk with your provider if you have frequentheadaches. He or she can figure out a treatment plan. Ask if you can have medicine to take at homethe next time you get a bad headache. This may keep you from having to visit the emergencydepartment in the future. You may need to see a headache specialist (neurologist) if you continue tohave headaches. 4 General Instructions [facility] Emergency Department [address] [place] [address] Phone #: ext- [phone] 09/17/2021 22:46 Patient: TRINY ORELLANA Sex: F : 2000 Age: 21yWhen to seek medical adviceCall your healthcare provider right away if any of these occur: Your head pain gets worse, or doesn't get better within 24 hours You can't keep liquids down (repeated vomiting) Pain in your sinuses, ears, or throat Fever of 100.4 F (38 C) or higher, or as directed by your healthcare provider Stiff neck Extreme drowsiness, confusion, or fainting Dizziness, or dizziness with spinning sensation (vertigo) Weakness or trouble feeling in an arm or leg, or on one side of your face Trouble talking or seeing [employer]. All rights reserved. This information is not intended as a substitute for professional medical care. Alwaysfollow your healthcare professional's instructions. You have been given the following additional information: Headache, Migraine, Classic(Electronically signed by Justo Real M.D. 09/18/2021 00:43) Name Value Range Interpretation Code Description Data Kendra rce(s) Supporting Document(s) ID Date Data Source [id number] 09/17/2021 10:56:00 PM EST [facility] 1 Clinical Report - Nurses [facility] Emergency Department [address] [place] [address] Phone #: ext- [phone] 09/17/2021 22:46 Patient: TRINY ORELLANA Sex: F : 2000 Age: 21yTRIAGEArrived by private vehicle. Historian: patient. Unaccompanied.Acuity: LEVEL 4.Chief Complaint: CHILLS and ACHES (Migraine).Alert. No acute distress.This started yesterday. ( Patient states since yesterday she has had a migraine, chills and body aches.She was seen at yesterday and prescribed an antibiotic (azythromycin) for a sinus infection. Patientcame in tonight due to continued migraine causing her nausea. Patient is currently .).Treatment MILLINERY COPYIST:(1829).SEPSIS SCREEN: NEGATIVE.SEVERE SEPSIS SCREEN NEGATIVE. No signs of organ dysfunction present. --23:24 09/17/21 Jorje Montanan23:19 09/17/21. BP: 122/73. HR: 68. RR: 19. O2 saturation: 99%. Temp: 98.1 F. Pain level now 7/10.--23:24 09/17/21 Jorje MontananTreatment MILLINERY COPYIST:(Karolina 1829). --23:26 09/17/21 Jyothi Montana.Weight: 64.4 kg. Height/Length: 65 inches. BMI: 23.7. --23:19 09/17/21 Jyothi Montana.Medications Cetirizine HCl Oral. --23:21 09/17/21 Jyothi Montana.AllergiesPenicillins. --23:21 09/17/21 Jyothi Montana.PROBLEMS:Aneurysm: (Brain). --23:36 09/17/21 Justo Real M.D.The following entry was modified by Justo Real M.D., 23:36 09/17/21Aneurysm. --23:22 09/17/21 Jyothi Montana.ADDITIONAL SURGERIES:no known surgeries. 2 Clinical Report - Nurses [facility] Emergency Department [address] [place] [address] Phone #: ext- [phone] 09/17/2021 22:46 Patient: TRINY ORELLANA Sex: F : 2000 Age: 21y History PAST MEDICAL HX: Last normal menstrual period- June 17. Confirmed : 13 weeks. Last oral intake by patient was (1830-toast). SOCIAL HX: Never smoker. No alcohol use or drug use. No recent travel. No known contact with a sick individual. She was offered HIV testing but declined. Patient education was provided. She was offered hepatitis C testing but declined. Patient education was provided. She has not traveled outside the [place] Infectious disease exposure: No infectious disease exposure. The patient may have been exposed to Coronavirus. (Patients daughter had Covid September 04, is no longer on quarantine). Patient is not a known carrier of tuberculosis, hepatitis, HIV, MRSA or VRE. Patient is not a known carrier of CRE. SELF HARM ASSESSMENT: Self harm assessment was performed. The patient answered "no" to the question(s) "Have you recently felt down, depressed, or hopeless?" and "Do you have thoughts of harming or killing yourself?". ABUSE ASSESSMENT: Abuse assessment. The patient had positive responses to the question(s) "Do you feel safe in your home?" and "Are you afraid to go home?". Abuse denied. No suspicion of abuse. No report of abuse. NUTRITIONAL RISK ASSESSMENT: The nutritional risk assessment revealed no deficiencies. FUNCTIONAL ASSESSMENT: Functional assessment: no impairments noted. LEARNING NEEDS ASSESSMENT: The learning needs assessment revealed no barriers. FALL RISK ASSESSMENT: Fall risk assessment completed. No risk factors identified. SKIN INTEGRITY ASSESSMENT: Skin integrity risk assessment completed. No skin integrity risk identified. --23:09/17/21 Jyothi Montana. Interventions Identification band on patient. --23:24 09/17/21 Jyothi Montana.PHYSICAL ASSESSMENTAmbulatory to room.GENERAL / NEURO / PSYCH: Alert. Oriented X 4. Appears in no acute distress.HEENT: Mucous membranes are pink.RESPIRATORY: Respirations not labored. Breath sounds within normal limits.CVS: Normal sinus rhythm noted. Capillary refill less than 2 seconds.GI / : Abdomen soft and nontender. Bowel sounds within normal limits.SKIN: Skin is warm and dry. --23:09/17/21 Jyothi Montana.NURSING PROGRESS NOTESPatient gowned. Reassurance given. Two patient identifiers checked. Call light placed in reach. Side 3 Clinical Report - Nurses [facility] Emergency Department [address] [place] [address] Phone #: ext- [phone] 09/17/2021 22:46 Patient: TRINY ORELLANA Sex: F : 2000 Age: 21y rails up x 2. Bed placed in lowest position. Brakes of bed on. Patient ready for evaluation. --23:24 09/17/21 Jyothi Montana 23:40 09/17/2021 Site #1 started via IV in the left antecubital space with an 20g angiocath, with aseptic technique and good blood return; one attempt. Saline lock flushed with saline. --23:40 09/17/21 Jyothi Montana 23:40 09/17/2021 Started bag #1 1000 mL IV Fluids IV NS; bolus of 1000 mL over 35 minute(s) via site #1 via IV pump. Allergies verified and confirmed 5 rights. IV patency established. IV site checked: no pain, redness, or swelling. IV flushed thoroughly pre- and post- medication administration. Information reviewed with patient including reason for taking this medication, signs of allergic reaction and precautions. Verbalizes understanding. --23:40 09/17/21 Jyothi Montana 23:40 09/17/2021 Reglan (Metoclopramide HCl) IVP 10 mg given over 5 minute(s) via site #1. Allergies verified and confirmed 5 rights. IV patency established. IV site checked: no pain, redness, or swelling. IV flushed thoroughly pre- and post- medication administration. IVP given by RN. Information reviewed with patient including reason for taking this medication, signs of allergic reaction and precautions. Verbalizes understanding. --23:40 09/17/21 Jyothi Montana 00:19 09/18/2021 IV Fluids IV NS via IV site #1 Discontinued: bag #1 completed. Total amount infused: 1000 mL. IV patency established. IV site checked: no pain, redness, or swelling. IV flushed thoroughly. --00:19 09/18/21 Jyothi Montana.DISPOSITION / DISCHARGE 00:36 09/18/2021 Site #1 removed upon discharge. Catheter intact. Bandaid applied. --00:36 09/18/21 Jyothi Montana Departure time: 00:36 09/18/2021. Condition at departure: improved and stable. No learning barriers present. Discharge instructions provided and reviewed with the patient. Reviewed warnings. Reviewed medication(s). Treatments reviewed. Reviewed referrals. Patient verbalized understanding. Written instructions provided in Panamanian. The patient was discharged by the physician. She was discharged home and unaccompanied at time of discharge. She left ambulatory and via private vehicle. [employer] Worker driving. --00:36 09/18/21 Jyothi Montana 00:35 09/18/21. BP: 120/70. HR: 71. RR: 15. O2 saturation: 100%. Temp: 98.0 F. Pain level now 10/29. --00:36 09/18/21 Jyothi Montana [place] Coma Scale: 15- eyes open- spontaneous (4); best verbal response- oriented (5); best motor response- obeys commands (6). --00:36 09/18/21 Jyothi Montana.Locked/Released at 09/18/2021 00:36 by Jyothi Montana 4 Clinical Report - Nurses [facility] Emergency Department [address] [place] [address] Phone #: ext- [phone] 09/17/2021 22:46 Patient: TRINY ORELLANA Sex: F : 2000 Age: 21y Name Value Range Interpretation Code Description Data Kendra rce(s) Supporting Document(s) ID Date Data Source [id number] 09/17/2021 10:56:00 PM EST [facility] 1 Clinical Report - Physicians/Mid Levels [facility] Emergency Department [address] [place] [address] Phone #: ext- [phone] 09/17/2021 22:46 Patient: TRINY ORELLANA Sex: F : 2000 Age: 21y Time Seen: 23:16 09/17/2021; initial patient contact. Arrived- By private vehicle. Historian- patient. Disposition decision: 00:29 09/18/2021.HISTORY OF PRESENT ILLNESS Chief Complaint: HEADACHE and MIGRAINE HEADACHE. Is still present. This started yesterday. It was gradual in onset and has been constant. Onset during rest. It is described as similar to previous headaches, "pain" and throbbing. Described as a global headache, located in the frontal region and has had posterior neck pain (chronic). At its maximum, severity described as severe and 10 / 10. When seen in the E.D., severity described as moderate and 7 / 10. Modifying factors: worsened by bright light, noise, moving head and general movement; relieved by rest and dark room. The patient has had moderate photophobia of the right eye and left eye. She has had moderate nausea and vomiting. No preceding symptoms, blurred vision, numbness or weakness. Similar symptoms previously. Patient has had similar symptoms many times, chronically. ( pt has Hx of chronic migraines). Recent medical care: The patient was seen recently in a clinic. ( seen at yesterday, prescribed zithromax for sinus infection).REVIEW OF SYSTEMSCurrently : LNMP: 06-17-21 EDC: 03-23-22 13 weeks In 2nd trimester. Has had care byobstetrician. Recent sonogram showed intrauterine . G 2. P 1. No fever, sinus pressure, earpain, sore throat or chest pain. No difficulty breathing, cough, abdominal pain, diarrhea or pain withurination. No skin rash, enlarged lymph nodes or back pain. The patient has had mild, generalizedmuscle aches. All other systems reviewed and are negative.PAST HISTORYSee nurses notes. Problems: Aneurysm. (Brain) Migraine Headache. . Additional Surgeries: no known surgeries. Medications: 2 Clinical Report - Physicians/Mid Levels [facility] Emergency Department [address] [place] [address] Phone #: ext- [phone] 09/17/2021 22:46 Patient: TRINY ORELLANA Sex: F : 2000 Age: 21y Cetirizine HCl Oral. Allergies: Penicillins.SOCIAL HISTORYNever smoker. No alcohol use or drug use. No recent travel.ADDITIONAL NOTESThe nursing notes have been reviewed with agreement regarding the chief complaint, HPI, ROS, PMH andpatient medications and allergies.PHYSICAL EXAMVital Signs: 09/17/2021 23:19 BP: 122/73. MAP: 89. HR: 68. RR: 19. O2 saturation: 99%. Temp: 98.1 F.Have been reviewed. Oxygen saturation normal.Appearance: Alert. No acute distress.Eyes: Mild photophobia present. Pupils equal, round and reactive to light. Eyes normal inspection.ENT: Nose normal. Pharynx normal.Neck: Normal inspection. Neck supple. No meningeal signs or lymphadenopathy.CVS: Normal heart rate and rhythm. Heart sounds normal. Pulses normal.Respiratory: No respiratory distress. Painless inspiration. Breath sounds normal.Abdomen: Soft and nontender. No organomegaly.Back: Normal inspection.Skin: Skin warm and dry. Normal skin color. No rash. Normal skin turgor.Extremities: Extremities exhibit normal ROM. No lower extremity edema.Neuro: Oriented X 3. Alert. Mood/affect normal. Speech normal. Cranial nerves normal (as tested).No cerebellar findings. No motor deficit. No sensory deficit.PROGRESS AND PROCEDURESCourse of Care: 00:28 09/18/21. pt markedly improved, feeling much, much better; will d/c home wmigraine instructions; pt understands and agrees. Patient counseled in person regarding the patient's stable condition, diagnosis and need for follow-up. Patient agrees with plan of care. Disposition: Condition: good and stable. Discharge decision based on the following: patient's condition is stable; patient's condition is improved; patient is ambulatory; patient is active; patient drinking fluids; patient's pain is controlled; patient's exam is improved; improving condition on repeat evaluation; social support is good; transportation is available; follow-up is available; clinical impression is consistent with outpatient treatment.CLINICAL IMPRESSION Second trimester ; positive test in emergency department. (13 weeks). Acute recurrent migraine headache without aura- poorly controlled. No status migrainosus. 3 Clinical Report - Physicians/Mid Levels [facility] Emergency Department [address] [place] [address] Phone #: ext- [phone] 09/17/2021 22:46 Patient: TRINY ORELLANA [facility]#: [id number] Sex: F : 2000 Age: 21yINSTRUCTIONS Do not smoke. No alcohol. Warnings: Further evaluation is necessary. It is very important to follow up with a healthcare provider. GENERAL WARNINGS: Return or contact your physician immediately if your condition worsens or changes unexpectedly, if not improving as expected, or if other problems arise. SPECIFICALLY, return if you develop fever, vomiting, numbness, weakness, difficulty thinking, visual disturbances, fainting or extreme fatigue. Your Current Medications: Your current home medications have been reviewed. CONTINUE TAKING THE FOLLOWING MEDICATIONS: Cetirizine HCl Oral. Prescription Medications: Reglan 10 mg tablet Take 1 tablet four times a day as needed for 5 days -- Dispense 20 tablet. Refills: 2. Substitution permitted. Pharmacy - [id number] - [id number] ; [place], [place] [phone]. . Follow-up: Return to the emergency department as needed. Follow up with your healthcare provider in three days even if well. Call for an appointment. Reason for referral: evaluation and treatment. Summary of care provided to patient via paper. Follow up with an human geography instructor in three days even if well. Call for an appointment. Reason for referral: evaluation and treatment. Summary of care provided to patient via paper. Understanding of the discharge instructions verbalized by patient. Expected course of illness, discharge instructions, activity level, diet, prescriptions x1, follow-up appointment and risks and benefits of treatment reviewed with patient and understanding verbalized. Agrees to plan of care.(Electronically signed by Justo Real M.D. 09/18/2021 00:43) Name Value Range Interpretation Code Description Data Kendra rce(s) Supporting Document(s) ID Date Data Source [id number] 09/08/2021 12:00:00 AM EST [facility] Name Value Range Interpretation Code Description Data [facility] rce(s) Supporting Document(s) SARS-CoV2 Rapid Antigen Negative [facility] This lab was reported by Grantisaías Nair. ID Date Data Source [id number] 09/04/2021 12:00:00 AM EST [facility] Name Value Range Interpretation Code Description Data Kendra rce(s) Supporting Document(s) SARS-CoV2 Rapid Antigen Negative [facility] This lab [facility] and reported by [facility]. ID Date Data Source [id number] 08/24/2021 12:00:00 AM EDT eCW1 ([facility]) Name Value Range Interpretation Code Description Data Kendra rce(s) Supporting Document(s) NEGATIVE NEGATIVE HBsAg eCW1 ([facility]) ID Date Data Source URINE CULTURE 08/24/2021 12:00:00 AM EDT eCW1 ([facility]) Name Value Range Interpretation Code Description Data Kendra rce(s) Supporting Document(s) URINE CULTURE eCW1 ([facility]) ID Date Data Source RUBELLA IMMUNE STATUS IgG 08/24/2021 12:00:00 AM EDT eCW1 ([facility]) Name Value Range Interpretation Code Description Data Kendra rce(s) Supporting Document(s) IMMUNE IMMUNE RUBELLA IgG QUALITATIVE eCW1 ( [facility]) ID Date Data Source SYPHILIS ANTIBODY (RPR SCREEN) 08/24/2021 12:00:00 AM EDT eC W1 ([facility]) Name Value Range Interpretation Code Description Data Kendra rce(s) Supporting Document(s) NONREACTIVE NONREACTIVE SYPHILIS eCW1 ([facility]) ID Date Data Source [id number] 08/24/2021 12:00:00 AM EDT eCW1 ([facility]) Name Value Range Interpretation Code Description Data Kendra rce(s) Supporting Document(s) HIV 1and2 ANTIBODY SCREEN eCW1 ([facility]) ID Date Data Source HEPATITIS C ANTIBODY INDEX 08/24/2021 12:00:00 AM EDT eCW1 ( [facility]) Name Value Range Interpretation Code Description Data Kendra rce(s) Supporting Document(s) < 0.0 <0.8 HEPATITIS C VIRUS GRACE IND EX eCW1 ([facility]) ID Date Data Source CHLAMYDIA & GC DNA AMPLIFICAT 08/24/2021 12:00:00 AM EDT eCW 1 ([facility]) Name Value Range Interpretation Code Description Data Kendra rce(s) Supporting Document(s) Chlamydia trachomatis rRNA [Presence] in Unspecified specimen by Probe and target amplification method NEGATIVE NEGATIVE CHLAMYDIA DNA AMPLIFICATION eCW1 ([facility]) ID Date Data Source CBC with Differential 08/24/2021 12:00:00 AM EDT eCW1 ([facility]) Name Value Range Interpretation Code Description Data Kendra rce(s) Supporting Document(s) 11.9 12.0-15.5 HEMOGLOBIN eCW1 ([facility]) 6.7 4.0-10.0 WHITE BLOOD COUNT eCW1 ([facility]) 4.20 4.00-5.40 RED BLOOD COUNT eCW1 ([facility]) 37.2 36.0-47.0 HEMATOCRIT eCW1 ([facility]) 28.3 27.0-33.0 MEAN CORPUSCULAR HEMOGLOB IN eCW1 ([facility]) 88.6 80.0-96.0 MEAN CORPUSCULAR VOLUME e CW1 ([facility]) 249 150-450 PLATELET COUNT, AUTOMATED eCW1 ([facility]) 13.4 11.5-14.5 RED CELL DISTRIBUTION WID TH eCW1 ([facility]) 32.0 32.0-36.5 MEAN CORPUSCULAR HGB CONC eCW1 ([facility]) 23.8 24.0-44.0 LYMPH % eCW1 ([facility]) 7.2 2.0-8.0 MONO % eCW1 ([facility]) 66.1 36.0-66.0 NEUTROPHILS % eCW1 ([facility]) 0.4 0.0-1.0 BASO % eCW1 ([facility]) 4.4 1.5-8.5 NEUTROPHILS # eCW1 ([facility]) 2.2 0.0-3.0 EOS % eCW1 ([facility]) 0.5 0.0-0.8 MONO # eCW1 ([facility]) 1.6 1.5-5.0 LYMPH # eCW1 ([facility]) 0.2 0.0-0.5 EOS # eCW1 ([facility]) 0.0 0.0-0.2 BASO # eCW1 ([facility]) ID Date Data Source Type and Screen Prenatal1 08/24/2021 12:00:00 AM EDT eCW1 ([facility]) Name Value Range Interpretation Code Description Data Kendra rce(s) Supporting Document(s) NEGATIVE AB SCREEN PNP1 GEL (VIS) eCW1 ([facility]) ID Date Data Source [id number] 08/02/2021 01:48:08 PM EDT [facility] Name Value Range Interpretation Code Description Data Kendra rce(s) Supporting Document(s) Progress Note [facility] [id number] lbm [file] [id number]= Procedure Social History Code Duration Value Status Description Data Source(s ) Smoking 09/16/2021 12:00:00 AM EST Patient has never smoked co mpleted Patient has never smoked MEDENT ([facility]) Smoking 08/24/2021 12:00:00 AM EDT Never Smoker completed Never S moker eCW1 ([facility]) Smoking 06/14/2021 12:00:00 AM EDT Never Smoker completed Never S moker eCW1 ([facility]) Smoking 06/14/2021 12:00:00 AM EDT Never Smoker completed Never S moker eCW1 ([facility]) Smoking 06/14/2021 12:00:00 AM EDT Never Smoker completed Never S moker eCW1 ([facility]) Smoking 06/14/2021 12:00:00 AM EDT Never Smoker completed Never S moker eCW1 ([facility]) Vital Signs ID Date Data Source UNK Name Value Range Interpretation Code Description Data Source(s) Diastolic blood pressure 74 mm[Hg] 74 mm[Hg] MEDENT ([facility]) Heart rate 81 /min 81 /min MEDENT ([facility]) Respiratory rate 18 /min 18 /min [facility] ( [facility]) Oxygen saturation in Arterial blood by Pulse oximetry 98 % 98 % [facility] ([facility]) Body temperature 98.8 [degF] 98.8 [degF] [facility] ([facility]) Body weight 142.00 [lb_av] 142.00 [lb_av] MEDEN T ([facility]) Body height 65 [in_i] 65 [in_i] MEDENT ([facility]) 5'5" Body mass index (BMI) [Ratio] 23.6 kg/m2 23.6 k g/m2 MEDENT ([facility]) Systolic blood pressure 107 mm[Hg] 107 mm[Hg] M EDENT ([facility]) Body weight 139 [lb_av] 139 [lb_av] eCW1 ([facility]) Body height 62 [in_i] 62 [in_i] eCW1 ([facility]) Body mass index (BMI) [Ratio] 25.423 kg/m2 25.4 23 kg/m2 eCW1 ([facility]) Systolic blood pressure 122 mm[Hg] 122 mm[Hg] e CW1 ([facility]) Diastolic blood pressure 64 mm[Hg] 64 mm[Hg] eCW1 ([facility]) Body weight 131 [lb_av] 131 [lb_av] eCW1 ([facility]) Body height 62 [in_i] 62 [in_i] eCW1 ([facility]) Body mass index (BMI) [Ratio] 23.96 kg/m2 23.96 kg/m2 eCW1 ([facility]) Heart rate 93 /min 93 /min eCW1 ([facility]) Respiratory rate 18 /min 18 /min eCW1 ([facility]) Body temperature 97.3 [degF] 97.3 [degF] eCW1 ( [facility]) Systolic blood pressure 100 mm[Hg] 100 mm[Hg] e CW1 ([facility]) Diastolic blood pressure 60 mm[Hg] 60 mm[Hg] eCW1 ([facility]) Patient Treatment Plan of Care Planned Activity Planned Date Details Description Data Source (s) Acetaminophen 325 MG / butalbital 50 MG / Caffeine 40 MG Oral Capsule 08/24/2021 12:00:00 AM EDT eCW1 ([facility]) doxylamine succinate 10 MG / Pyridoxine Hydrochloride 10 MG Delayed Release Oral Tablet 08/24/2021 12:00:00 AM EDT eCW1 ([facility])
[2021-09-18] MEDS ORDERED: ZYRTTAB8 PO (12:30)
[2021-09-18] MEDS ORDERED: BUTA1CAP PO (12:30)
[2021-09-18] MEDS ORDERED: KETOROLAC 30 MG/ML 1ML VIAL IV ONE (16:30)
[2021-09-18] MEDS ORDERED: ONDANSETRON 4MG/2ML VIAL IV ONE (16:30)
[2021-09-18] MEDS ORDERED: NS 1,000 ML IV ONE (16:30)
[2021-09-18 16:58] LABS: BASO % 0.2 % (0.0-1.0); EOS # 0.2 10^3/uL (0.0-0.5); EOS % 2.6 % (0.0-3.0); HEMATOCRIT 35.1 % (36.0-47.0); HEMOGLOBIN 11.7 g/dl (12.0-15.5); LYMPH # 1.8 10^3/uL (1.5-5.0); LYMPH % 21.2 % (24.0-44.0); MEAN CORPUSCULAR HGB CONC 33.3 g/dl (32.0-36.5); MEAN CORPUSCULAR VOLUME 87.1 fl (80.0-96.0); MONO # 0.5 10^3/uL (0.0-0.8); MONO % 5.6 % (2.0-8.0); NEUTROPHILS # 5.9 10^3/uL (1.5-8.5); NEUTROPHILS % 70.2 % (36.0-66.0); PLATELET COUNT, AUTOMATED 219 10^3/uL (150-450); RED BLOOD COUNT 4.03 10^6/uL (4.00-5.40); WHITE BLOOD COUNT 8.4 10^3/uL (4.0-10.0)
[2021-09-18 17:16] LABS: BLOOD UREA NITROGEN 10 MG/DL (7-18); CALCIUM LEVEL 8.7 MG/DL (8.5-10.1); CARBON DIOXIDE LEVEL 22 MEQ/L (21-32); CHLORIDE LEVEL 107 MEQ/L (98-107); CREATININE FOR GFR 0.43 MG/DL (0.55-1.30); GLOMERULAR FILTRATION RATE > 60.0 (>60); GLUCOSE, FASTING 72 MG/DL (70-100); POTASSIUM SERUM 3.9 MEQ/L (3.5-5.1); SODIUM LEVEL 138 MEQ/L (136-145)
[2021-09-18] MEDS ORDERED: FIORICET TAB PO ONE (18:05)
[2021-09-18 18:23] LABS: RSV AMPLIFICATION NEGATIVE (NEGATIVE)
[2021-09-18] MEDS ORDERED: KETO10TAB PO (19:00)
[2021-09-18] MEDS ORDERED: ONDA4TAB6 PO (19:00)
[2021-09-18 19:16] VITALS: BP 117/69
--- NOTE | 2021-09-18 19:27 | REP ---
INDICATION: cramping 13 weeks. COMPARISON: None. TECHNIQUE: Real-time sonographic evaluation of gravid uterus. FINDINGS: There is a single living intrauterine gestation. The estimated gestational age based on a crown-rump length of 63 mm is 12 weeks 5 days, EDC 03/28/2022. heart rate 155 beats per minute. There is no subchorionic hemorrhage. Placenta is anterior. The left ovary is normal, there is RO torsion with duplex Doppler evaluation. The right ovary is not visualized. IMPRESSION: Single living intrauterine gestation 12 weeks 5 days gestational age, heart rate 155 beats per minute. No subchorionic hemorrhage. <Electronically signed by Brendan Macario > 09/18/211922
== END 2021-09-18 19:32 | disposition home or self-care (01) ==
LOC: M ED 11:35
DX: G43.909 Migraine, unspecified, not intractable, without status migrainosus (principal); O21.9 Vomiting of pregnancy, unspecified; Z3A.12 12 weeks gestation of pregnancy; Z79.899 Other long term (current) drug therapy; O99.352 Diseases of the nervous system complicating pregnancy, second trimester
CPT/HCPCS: 76801; 80048; 85025; 87631; 96361; 96374; 96375; 99284; J1885; J2405

== ENCOUNTER → 2021-11-05 | Outpatient (CLI) | payer BC ==
[~2021-11-05] MED LIST changes: +BUTA1CAP PO; +KETO10TAB PO; +ONDA4TAB6 PO; +ZYRTTAB8 PO
== END ==
LOC: M WHC 08:17
PROVIDERS: ATTEND Specialist
DX: Z36.9 Encounter for antenatal screening, unspecified (principal); Z3A.19 19 weeks gestation of pregnancy

== ENCOUNTER → 2021-12-26 | Outpatient (CLI) | payer BC ==
[2021-12-26 10:52] LABS: HEMATOCRIT 34.3 % (36.0-47.0); HEMOGLOBIN 11.3 g/dl (12.0-15.5); MEAN CORPUSCULAR HEMOGLOBIN 29.8 pg (27.0-33.0); MEAN CORPUSCULAR HGB CONC 32.9 g/dl (32.0-36.5); MEAN CORPUSCULAR VOLUME 90.5 fl (80.0-96.0); PLATELET COUNT, AUTOMATED 206 10^3/uL (150-450); RED BLOOD COUNT 3.79 10^6/uL (4.00-5.40); WHITE BLOOD COUNT 9.4 10^3/uL (4.0-10.0)
== END ==
LOC: M PLALAB 07:48
PROVIDERS: ATTEND Advanced Practice Midwife
DX: O99.712 Diseases of the skin and subcutaneous tissue complicating pregnancy, second trimester (principal)

== ENCOUNTER → 2022-03-01 | Outpatient (REF) | payer BC | LOC: M SFHCWAGY 13:14 | PROVIDERS: ATTEND Obstetrics & Gynecology | DX: Z36.85 Encounter for antenatal screening for Streptococcus B (principal) ==

== ENCOUNTER 2022-03-06 12:49 | Outpatient (CLI) | payer BC ==
[~2022-03-06] VITALS: Ht 165.1 cm; Wt 85.8 kg
[2022-03-06 13:08] VITALS: BP 137/82
[2022-03-06 14:02] VITALS: BP 117/70
== END 2022-03-06 14:50 | disposition home or self-care (01) ==
LOC: M LDO 12:49
PROVIDERS: ATTEND Advanced Practice Midwife
DX: O60.03 Preterm labor without delivery, third trimester (principal); O26.893 Other specified pregnancy related conditions, third trimester; N89.8 Other specified noninflammatory disorders of vagina; Z3A.37 37 weeks gestation of pregnancy
CPT/HCPCS: 59025; G0378; G0463

== ENCOUNTER → 2022-08-15 | Outpatient (REF) | payer BC ==
[~2022-08-15] MED LIST changes: +ACET-683 PO; +COLA100C5 PO; +IBUP-1022 PO; +NORE0.353 PO
== END ==
LOC: M PLALAB 14:18
PROVIDERS: ATTEND Advanced Practice Midwife
DX: Z12.4 Encounter for screening for malignant neoplasm of cervix (principal); R87.612 Low grade squamous intraepithelial lesion on cytologic smear of cervix (LGSIL); R87.810 Cervical high risk human papillomavirus (HPV) DNA test positive
CPT/HCPCS: 87624; G0123

== ENCOUNTER → 2022-08-16 | Outpatient (CLI) | payer BC ==
[2022-08-16 13:42] LABS: HEMATOCRIT 41.6 % (36.0-47.0); HEMOGLOBIN 13.1 g/dl (12.0-15.5); MEAN CORPUSCULAR HEMOGLOBIN 26.8 pg (27.0-33.0); MEAN CORPUSCULAR HGB CONC 31.5 g/dl (32.0-36.5); MEAN CORPUSCULAR VOLUME 85.2 fl (80.0-96.0); PLATELET COUNT, AUTOMATED 319 10^3/uL (150-450); RED BLOOD COUNT 4.88 10^6/uL (4.00-5.40); WHITE BLOOD COUNT 5.3 10^3/uL (4.0-10.0)
[2022-08-16 14:22] LABS: HEMOGLOBIN A1c 5.5 %
[2022-08-16 14:34] LABS: ALBUMIN 3.7 GM/DL (3.2-5.2); ALT/SGPT 13 U/L (12-78); BILIRUBIN,TOTAL 0.5 MG/DL (0.2-1.0); BLOOD UREA NITROGEN 17 MG/DL (7-18); CALCIUM LEVEL 9.3 MG/DL (8.5-10.1); CARBON DIOXIDE LEVEL 26 MEQ/L (21-32); CHLORIDE LEVEL 106 MEQ/L (98-107); CHOLESTEROL LEVEL 195 MG/DL (<200); CHOLESTEROL RISK RATIO 2.635 (<5); CREATININE FOR GFR 0.88 MG/DL (0.55-1.30); FREE T4 0.82 NG/DL (0.76-1.46); GLOMERULAR FILTRATION RATE > 60.0 (>60); GLUCOSE, FASTING 71 MG/DL (70-100); HDL CHOLESTEROL 74 MG/DL (>40); LDL CHOLESTEROL 104 MG/DL (<100); NON-HDL-C 121 MG/DL; POTASSIUM SERUM 4.2 MEQ/L (3.5-5.1); SODIUM LEVEL 137 MEQ/L (136-145); TOTAL PROTEIN 7.6 GM/DL (6.4-8.2); TRIGLYCERIDES LEVEL 83 MG/DL (<150)
[2022-08-19 15:07] LABS: TESTOSTERONE FREE (DIRECT) 0.8 pg/mL (0.0-4.2); VITAMIN D 1,25 DIHYDROXY 38.9 pg/mL (24.8-81.5)
== END ==
LOC: M PLALAB 09:08
PROVIDERS: ATTEND Advanced Practice Midwife
DX: Z01.419 Encounter for gynecological examination (general) (routine) without abnormal findings (principal); N92.6 Irregular menstruation, unspecified

== ENCOUNTER → 2022-10-30 | Outpatient (REF) | payer BC | LOC: M PLALAB 14:49 | PROVIDERS: ATTEND Obstetrics & Gynecology | DX: R87.612 Low grade squamous intraepithelial lesion on cytologic smear of cervix (LGSIL) (principal) ==

== ENCOUNTER 2022-11-04 11:41 | Emergency (ER) | payer BC ==
[~2022-11-04] VITALS: Ht 165.1 cm; Wt 80.9 kg
[2022-11-04 16:02] LABS: HEMATOCRIT 38.7 % (36.0-47.0); HEMOGLOBIN 12.7 g/dl (12.0-15.5); MEAN CORPUSCULAR HEMOGLOBIN 28.1 pg (27.0-33.0); MEAN CORPUSCULAR HGB CONC 32.8 g/dl (32.0-36.5); MEAN CORPUSCULAR VOLUME 85.6 fl (80.0-96.0); PLATELET COUNT, AUTOMATED 317 10^3/uL (150-450); RED BLOOD COUNT 4.52 10^6/uL (4.00-5.40); WHITE BLOOD COUNT 11.7 10^3/uL (4.0-10.0)
[2022-11-04 16:22] LABS: BLOOD UREA NITROGEN 12 MG/DL (9-23); CALCIUM LEVEL 8.8 MG/DL (8.5-10.1); CARBON DIOXIDE LEVEL 26 MMOL/L (20-31); CHLORIDE LEVEL 103 MMOL/L (98-107); CREATININE FOR GFR 0.63 MG/DL (0.55-1.30); GLOMERULAR FILTRATION RATE > 60.0 (>60); GLUCOSE, FASTING 89 MG/DL (60-100); HCG, SERUM QUANTITATIVE 168.2 MIU/ML (<4.2); POTASSIUM SERUM 3.7 MMOL/L (3.5-5.1); SODIUM LEVEL 137 MMOL/L (136-145)
[2022-11-04 17:12] VITALS: BP 140/89
== END 2022-11-04 17:23 | disposition home or self-care (01) ==
LOC: M ED 15:54
DX: O20.0 Threatened abortion (principal); O26.90 Pregnancy related conditions, unspecified, unspecified trimester; M54.50 Low back pain, unspecified; Z88.0 Allergy status to penicillin; Z3A.00 Weeks of gestation of pregnancy not specified; Z79.899 Other long term (current) drug therapy

== ENCOUNTER → 2022-11-06 | Outpatient (CLI) | payer BC | LOC: M PLALAB 11:45 | PROVIDERS: ATTEND Advanced Practice Midwife | DX: O03.9 Complete or unspecified spontaneous abortion without complication (principal) ==

== ENCOUNTER → 2022-11-13 | Outpatient (CLI) | payer BC | LOC: M LAB 09:54 | PROVIDERS: ATTEND Advanced Practice Midwife | DX: O03.9 Complete or unspecified spontaneous abortion without complication (principal) ==

== ENCOUNTER → 2022-11-14 | Outpatient (REF) | payer BC | LOC: M PLALAB 12:09 | PROVIDERS: ATTEND Advanced Practice Midwife | DX: O02.81 Inappropriate change in quantitative human chorionic gonadotropin (hCG) in early pregnancy (principal); M54.50 Low back pain, unspecified ==

== ENCOUNTER → 2022-11-15 | Outpatient (CLI) | payer BC ==
[2022-11-15 12:48] LABS: HEMOGLOBIN 12.1 g/dl (12.0-15.5); MEAN CORPUSCULAR HEMOGLOBIN 27.2 pg (27.0-33.0); MEAN CORPUSCULAR HGB CONC 31.8 g/dl (32.0-36.5); MEAN CORPUSCULAR VOLUME 85.4 fl (80.0-96.0); PLATELET COUNT, AUTOMATED 297 10^3/uL (150-450); RED BLOOD COUNT 4.45 10^6/uL (4.00-5.40); WHITE BLOOD COUNT 6.7 10^3/uL (4.0-10.0)
[2022-11-15 13:17] LABS: ALBUMIN 3.9 G/DL (3.2-5.2); ALKALINE PHOSPHATASE 84 U/L (46-116); ALT/SGPT < 9 U/L (7.0-40); AST/SGOT 14 U/L (<34); BILIRUBIN,TOTAL 0.4 MG/DL (0.3-1.2); BLOOD UREA NITROGEN 16 MG/DL (9-23); CALCIUM LEVEL 9.1 MG/DL (8.5-10.1); CARBON DIOXIDE LEVEL 27 MMOL/L (20-31); CHLORIDE LEVEL 103 MMOL/L (98-107); CREATININE FOR GFR 0.68 MG/DL (0.55-1.30); GLOMERULAR FILTRATION RATE > 60.0 (>60); GLUCOSE, FASTING 80 MG/DL (60-100); HCG, SERUM QUANTITATIVE 280.9 MIU/ML (<4.2); SODIUM LEVEL 137 MMOL/L (136-145); TOTAL PROTEIN 7.3 G/DL (5.7-8.2)
== END ==
LOC: M LAB 12:09
PROVIDERS: ATTEND Advanced Practice Midwife
DX: O02.81 Inappropriate change in quantitative human chorionic gonadotropin (hCG) in early pregnancy (principal)

== ENCOUNTER → 2022-11-18 | Outpatient (CLI) | payer BC | LOC: M LAB 14:05 | PROVIDERS: ATTEND Advanced Practice Midwife | DX: O03.9 Complete or unspecified spontaneous abortion without complication (principal); O02.81 Inappropriate change in quantitative human chorionic gonadotropin (hCG) in early pregnancy ==

== ENCOUNTER → 2022-11-26 | Outpatient (CLI) | payer BC | LOC: M LAB 15:48 | PROVIDERS: ATTEND Advanced Practice Midwife | DX: O03.9 Complete or unspecified spontaneous abortion without complication (principal) ==

== ENCOUNTER → 2022-12-24 | Outpatient (CLI) | payer BC | LOC: M LAB 08:38 | PROVIDERS: ATTEND Advanced Practice Midwife | DX: Z34.90 Encounter for supervision of normal pregnancy, unspecified, unspecified trimester (principal) ==

== ENCOUNTER → 2022-12-26 | Outpatient (CLI) | payer BC | LOC: M PLALAB 09:54 | PROVIDERS: ATTEND Advanced Practice Midwife | DX: Z34.90 Encounter for supervision of normal pregnancy, unspecified, unspecified trimester (principal) ==

== ENCOUNTER → 2023-01-23 | Outpatient (CLI) | payer BC | LOC: M LAB 12:51 | PROVIDERS: ATTEND Advanced Practice Midwife | DX: Z34.90 Encounter for supervision of normal pregnancy, unspecified, unspecified trimester (principal) ==

== ENCOUNTER → 2023-01-25 | Outpatient (CLI) | payer BC | LOC: M LAB 12:16 | PROVIDERS: ATTEND Advanced Practice Midwife | DX: Z34.90 Encounter for supervision of normal pregnancy, unspecified, unspecified trimester (principal) ==

== ENCOUNTER → 2023-02-05 | Outpatient (CLI) | payer BC | LOC: M PLALAB 08:26 | PROVIDERS: ATTEND Advanced Practice Midwife | DX: O02.1 Missed abortion (principal) ==

== ENCOUNTER → 2023-02-10 | Outpatient (CLI) | payer BC | LOC: M LAB 14:21 | PROVIDERS: ATTEND Advanced Practice Midwife | DX: O02.1 Missed abortion (principal) ==

== ENCOUNTER → 2023-02-24 | Outpatient (CLI) | payer BC ==
[~2023-02-24] MED LIST changes: +BENA25CA4 PO; +HYDR-4517 PO; +ONDA8TAB8 PO
== END ==
LOC: M PLALAB 08:42
PROVIDERS: ATTEND Advanced Practice Midwife
DX: O02.1 Missed abortion (principal)

== ENCOUNTER 2023-02-26 06:16 | Day surgery (SDC) | payer BC ==
[~2023-02-26] VITALS: Ht 165.1 cm; Wt 83.9 kg
[2023-02-26 07:08] LABS: HEMATOCRIT 39.5 % (36.0-47.0); HEMOGLOBIN 12.6 g/dl (12.0-15.5); MEAN CORPUSCULAR HEMOGLOBIN 27.7 pg (27.0-33.0); MEAN CORPUSCULAR HGB CONC 31.9 g/dl (32.0-36.5); MEAN CORPUSCULAR VOLUME 86.8 fl (80.0-96.0); PLATELET COUNT, AUTOMATED 306 10^3/uL (150-450); RED BLOOD COUNT 4.55 10^6/uL (4.00-5.40); WHITE BLOOD COUNT 6.2 10^3/uL (4.0-10.0)
[2023-02-26] MEDS ORDERED: ONDANSETRON 4MG 2ML VIAL As Ordered ONE (07:16)
[2023-02-26] MEDS ORDERED: LIDOCAINE 2% 100MG/5ML SDV (FOR ANES.) As Ordered ONE (07:16)
[2023-02-26] MEDS ORDERED: propofoL 200 MG/20 ML VIAL As Ordered ONE (07:16)
[2023-02-26] MEDS ORDERED: fentaNYL 100 MCG/2 ML INJECTION As Ordered ONE (07:17)
[2023-02-26] MEDS ORDERED: MIDAZOLAM INJ 2MG/2ML VIAL As Ordered ONE (07:17)
[2023-02-26] MEDS ORDERED: KETOROLAC 60MG 2ML VIAL As Ordered ONE (07:17)
[2023-02-26] MEDS ORDERED: ACETAMINOPHEN 1000MG 100ML IV BAG As Ordered ONE (07:17)
[2023-02-26] MEDS ORDERED: SILVER NITRATE APPLICATOR (1 = QTY 10) As Ordered ONE (07:21)
[2023-02-26] MEDS ORDERED: DOXYCYCLINE HYCLATE 100 MG in D5W MINI-BAG PLUS 100 ML IV ONE (07:45)
[2023-02-26] MEDS ORDERED: oxyCODONE 5MG TAB PO PRN (08:35)
[2023-02-26] MEDS ORDERED: LR 1,000 ML IV SCH ×2 (08:35→09:35)
[2023-02-26] MEDS ORDERED: fentaNYL 100 MCG/2 ML INJECTION IV PRN (08:35)
[2023-02-26] MEDS ORDERED: ONDANSETRON 4MG 2ML VIAL IV PRN (08:35)
[2023-02-26] MEDS ORDERED: DOXYCYCLINE HYCLATE 100MG TABLET PO ONE (10:00)
[2023-02-26 11:15] VITALS: BP 131/74
== END 2023-02-26 11:15 | disposition home or self-care (01) ==
LOC: M SDC 06:16
PROVIDERS: ATTEND Obstetrics & Gynecology
DX: O03.2 Embolism following incomplete spontaneous abortion (principal); I10 Essential (primary) hypertension; G43.909 Migraine, unspecified, not intractable, without status migrainosus; Z79.899 Other long term (current) drug therapy; Z88.0 Allergy status to penicillin
CPT/HCPCS: 36415; 59820; 84702; 85027; 86850; 86900; 86901; 88305; J0131; J1100; J1885; J2250; J2405; J3010

== ENCOUNTER → 2023-03-05 | Outpatient (CLI) | payer BC ==
[2023-03-05 11:19] LABS: HEMATOCRIT 36.7 % (36.0-47.0); HEMOGLOBIN 11.6 g/dl (12.0-15.5); MEAN CORPUSCULAR HEMOGLOBIN 27.6 pg (27.0-33.0); MEAN CORPUSCULAR HGB CONC 31.6 g/dl (32.0-36.5); MEAN CORPUSCULAR VOLUME 87.4 fl (80.0-96.0); PLATELET COUNT, AUTOMATED 315 10^3/uL (150-450); WHITE BLOOD COUNT 7.3 10^3/uL (4.0-10.0)
== END ==
LOC: M PLALAB 08:36
PROVIDERS: ATTEND Obstetrics & Gynecology
DX: Z48.816 Encounter for surgical aftercare following surgery on the genitourinary system (principal)

== ENCOUNTER → 2023-03-26 | Outpatient (CLI) | payer BC ==
[2023-03-26 16:39] LABS: ALBUMIN 3.6 G/DL (3.2-5.2); ALKALINE PHOSPHATASE 74 U/L (46-116); ALT/SGPT 13 U/L (7.0-40); AST/SGOT 11 U/L (<34); BILIRUBIN,TOTAL 0.2 MG/DL (0.3-1.2); BLOOD UREA NITROGEN 11 MG/DL (9-23); CALCIUM LEVEL 8.3 MG/DL (8.5-10.1); CARBON DIOXIDE LEVEL 27 MMOL/L (20-31); CHLORIDE LEVEL 106 MMOL/L (98-107); GLOMERULAR FILTRATION RATE > 60.0 (>60); GLUCOSE, FASTING 85 MG/DL (60-100); POTASSIUM SERUM 3.9 MMOL/L (3.5-5.1); RHEUMATOID FACTOR QUANT < 3.5 IU/ML (<14); SODIUM LEVEL 139 MMOL/L (136-145); TOTAL PROTEIN 6.7 G/DL (5.7-8.2)
[2023-03-26 16:41] LABS: THYROID STIMULATING HORMONE 1.683 uIU/ML (0.55-4.78); TOTAL 25(OH) VITAMIN D 27.5 NG/ML (20.0-100.0)
[2023-03-28 15:08] LABS: ANTINUCLEAR ANTIBODIES DIRECT Negative (Negative)
== END ==
LOC: M LAB 15:51
PROVIDERS: ATTEND Psychiatry & Neurology Neurology
DX: R51.9 Headache, unspecified (principal)

== ENCOUNTER 2023-03-31 08:58 | Emergency (ER) | payer BC ==
[~2023-03-31] VITALS: Ht 165.1 cm; Wt 84.3 kg
[2023-03-31] MEDS ORDERED: NS 1,000 ML IV ONE (11:15)
[2023-03-31 11:17] LABS: BASO % 0.4 % (0.0-1.0); EOS # 0.1 10^3/uL (0.0-0.5); EOS % 1.6 % (0.0-3.0); HEMATOCRIT 35.9 % (36.0-47.0); HEMOGLOBIN 11.7 g/dl (12.0-15.5); LYMPH # 1.8 10^3/uL (1.5-5.0); LYMPH % 23.9 % (24.0-44.0); MEAN CORPUSCULAR HEMOGLOBIN 27.5 pg (27.0-33.0); MEAN CORPUSCULAR HGB CONC 32.6 g/dl (32.0-36.5); MEAN CORPUSCULAR VOLUME 84.5 fl (80.0-96.0); MONO # 0.4 10^3/uL (0.0-0.8); MONO % 5.2 % (2.0-8.0); NEUTROPHILS # 5.3 10^3/uL (1.5-8.5); NEUTROPHILS % 68.4 % (36.0-66.0); PLATELET COUNT, AUTOMATED 288 10^3/uL (150-450); RED BLOOD COUNT 4.25 10^6/uL (4.00-5.40); WHITE BLOOD COUNT 7.7 10^3/uL (4.0-10.0)
[2023-03-31 11:41] LABS: LIPASE 23 U/L (12-53)
[2023-03-31 11:43] LABS: ALBUMIN 3.5 G/DL (3.2-5.2); ALKALINE PHOSPHATASE 97 U/L (46-116); ALT/SGPT 28 U/L (7.0-40); AST/SGOT 23 U/L (<34); BILIRUBIN,DIRECT 0.1 MG/DL (<0.4); BILIRUBIN,TOTAL 0.4 MG/DL (0.3-1.2); BLOOD UREA NITROGEN 12 MG/DL (9-23); CALCIUM LEVEL 8.7 MG/DL (8.5-10.1); CARBON DIOXIDE LEVEL 25 MMOL/L (20-31); CHLORIDE LEVEL 108 MMOL/L (98-107); GLOMERULAR FILTRATION RATE > 60.0 (>60); GLUCOSE, FASTING 90 MG/DL (60-100); POTASSIUM SERUM 4.1 MMOL/L (3.5-5.1); SODIUM LEVEL 138 MMOL/L (136-145); TOTAL PROTEIN 6.6 G/DL (5.7-8.2)
[2023-03-31 11:46] LABS: HCG, SERUM QUALITATIVE NEGATIVE (NEGATIVE)
[2023-03-31 13:20] VITALS: BP 111/65; TEMP 97.9; O2SAT 100
== END 2023-03-31 16:33 | disposition home or self-care (01) ==
LOC: M ED 08:58
DX: A08.4 Viral intestinal infection, unspecified (principal); Z79.899 Other long term (current) drug therapy; Z88.0 Allergy status to penicillin

== ENCOUNTER → 2023-08-01 | Outpatient (CLI) | payer BC ==
[2023-08-01 15:47] LABS: BASO % 0.5 % (0.0-1.0); EOS # 0.2 10^3/uL (0.0-0.5); EOS % 3.6 % (0.0-3.0); HEMATOCRIT 36.3 % (36.0-47.0); HEMOGLOBIN 11.5 g/dl (12.0-15.5); LYMPH # 1.9 10^3/uL (1.5-5.0); LYMPH % 32.3 % (24.0-44.0); MEAN CORPUSCULAR HEMOGLOBIN 26.4 pg (27.0-33.0); MEAN CORPUSCULAR HGB CONC 31.7 g/dl (32.0-36.5); MEAN CORPUSCULAR VOLUME 83.4 fl (80.0-96.0); MONO # 0.5 10^3/uL (0.0-0.8); MONO % 8.9 % (2.0-8.0); NEUTROPHILS # 3.2 10^3/uL (1.5-8.5); NEUTROPHILS % 54.5 % (36.0-66.0); PLATELET COUNT, AUTOMATED 308 10^3/uL (150-450); RED BLOOD COUNT 4.35 10^6/uL (4.00-5.40); WHITE BLOOD COUNT 5.9 10^3/uL (4.0-10.0)
[2023-08-01 15:56] LABS: ERYTHROCYTE SEDIMENTATION RATE 17 mm/hr (0-20)
[2023-08-01 16:18] LABS: ALBUMIN 3.5 G/DL (3.2-5.2); ALKALINE PHOSPHATASE 61 U/L (46-116); ALT/SGPT < 9 U/L (7.0-40); AST/SGOT 11 U/L (<34); BILIRUBIN,TOTAL 0.3 MG/DL (0.3-1.2); BLOOD UREA NITROGEN 14 MG/DL (9-23); CALCIUM LEVEL 8.5 MG/DL (8.5-10.1); CARBON DIOXIDE LEVEL 30 MMOL/L (20-31); CHLORIDE LEVEL 105 MMOL/L (98-107); CREATININE FOR GFR 0.76 MG/DL (0.55-1.30); GLOMERULAR FILTRATION RATE > 60.0 (>60); GLUCOSE, FASTING 91 MG/DL (60-100); POTASSIUM SERUM 3.8 MMOL/L (3.5-5.1); SODIUM LEVEL 142 MMOL/L (136-145); TOTAL PROTEIN 6.6 G/DL (5.7-8.2)
[2023-08-01 16:22] LABS: RHEUMATOID FACTOR QUANT < 3.5 IU/ML (<14)
[2023-08-04 12:07] LABS: ANTINUCLEAR ANTIBODIES DIRECT Negative (Negative)
== END ==
LOC: M PLALAB 13:52
PROVIDERS: ATTEND Psychiatry & Neurology Neurology
DX: R51.9 Headache, unspecified (principal)

== ENCOUNTER → 2023-11-04 | Outpatient (REF) | LOC: M EMP 11:19 | PROVIDERS: ATTEND Family Medicine | DX: Z11.52 Encounter for screening for COVID-19 (principal) ==

== ENCOUNTER → 2023-12-25 | Outpatient (CLI) | payer BC ==
[2023-12-25 10:14] LABS: HCG, SERUM QUALITATIVE POSITIVE (NEGATIVE)
[2023-12-25 12:55] LABS: HCG, SERUM QUANTITATIVE 77.5 MIU/ML (<4.2)
== END ==
LOC: M LAB 09:13
PROVIDERS: ATTEND Obstetrics & Gynecology
DX: Z32.01 Encounter for pregnancy test, result positive (principal)

== ENCOUNTER → 2023-12-27 | Outpatient (CLI) | payer BC | LOC: M LAB 09:54 | PROVIDERS: ATTEND Obstetrics & Gynecology | DX: Z32.01 Encounter for pregnancy test, result positive (principal) ==

== ENCOUNTER → 2024-02-05 | Outpatient (CLI) | payer BC ==
[2024-02-05 15:38] LABS: HEMATOCRIT 37.1 % (36.0-47.0); HEMOGLOBIN 12.1 g/dl (12.0-15.5); MEAN CORPUSCULAR HEMOGLOBIN 28.5 pg (27.0-33.0); MEAN CORPUSCULAR HGB CONC 32.6 g/dl (32.0-36.5); MEAN CORPUSCULAR VOLUME 87.5 fl (80.0-96.0); PLATELET COUNT, AUTOMATED 303 10^3/uL (150-450); RED BLOOD COUNT 4.24 10^6/uL (4.00-5.40); WHITE BLOOD COUNT 9.5 10^3/uL (4.0-10.0)
[2024-02-05 16:15] LABS: HIV 1&2 SCREEN NEGATIVE (NEGATIVE)
[2024-02-05 16:23] LABS: HEPATITIS C VIRUS ABY INDEX < 0.02 INDEX (<0.8)
[2024-02-05 17:18] LABS: GC DNA AMPLIFICATION NEGATIVE (NEGATIVE)
== END ==
LOC: M PLALAB 11:47
PROVIDERS: ATTEND Obstetrics & Gynecology
DX: Z34.91 Encounter for supervision of normal pregnancy, unspecified, first trimester (principal)

== ENCOUNTER → 2024-02-20 | Outpatient (CLI) | payer BC | LOC: M PLALAB 11:25 | PROVIDERS: ATTEND Advanced Practice Midwife | DX: Z34.80 Encounter for supervision of other normal pregnancy, unspecified trimester (principal) ==

== ENCOUNTER → 2024-04-05 | Outpatient (CLI) | payer BC ==
[~2024-04-05] MED LIST changes: +ONDA-282 PO; +ONDA-284 PO; -ONDA4TAB6 PO; -ONDA8TAB8 PO
== END ==
LOC: M LAB 12:57
PROVIDERS: ATTEND Obstetrics & Gynecology
DX: Z36.89 Encounter for other specified antenatal screening (principal)

== ENCOUNTER → 2024-04-09 | Outpatient (CLI) | payer BC | LOC: M WHC 10:17 | PROVIDERS: ATTEND Obstetrics & Gynecology | DX: Z34.92 Encounter for supervision of normal pregnancy, unspecified, second trimester (principal) ==

== ENCOUNTER 2024-05-17 20:03 | Emergency (ER) | payer BC ==
[~2024-05-17] VITALS: Ht 165.1 cm; Wt 87.4 kg
[2024-05-17 20:04] VITALS: TEMP 98.5
[2024-05-17] MEDS: FIORICET TAB PO ONE (21:53)
[2024-05-17] MEDS: methylPREDNISolone 125MG 2ML VIAL IV ONE (21:54)
[2024-05-17] MEDS: MAG SULF 1GM/100ML (MAG RUN) 1 GM in IV 1 EA IV ONE (21:54)
[2024-05-17] MEDS: NS 1,000 ML IV ONE (21:55)
[2024-05-17 21:57] LABS: BASO % 0.2 % (0.0-1.0); EOS # 0.1 10^3/uL (0.0-0.5); EOS % 1.3 % (0.0-3.0); HEMATOCRIT 30.6 % (36.0-47.0); HEMOGLOBIN 10.4 g/dl (12.0-15.5); LYMPH # 2.1 10^3/uL (1.5-5.0); MEAN CORPUSCULAR HEMOGLOBIN 29.3 pg (27.0-33.0); MEAN CORPUSCULAR VOLUME 86.2 fl (80.0-96.0); MONO # 0.7 10^3/uL (0.0-0.8); MONO % 6.1 % (2.0-8.0); NEUTROPHILS # 7.9 10^3/uL (1.5-8.5); NEUTROPHILS % 72.9 % (36.0-66.0); PLATELET COUNT, AUTOMATED 208 10^3/uL (150-450); RED BLOOD COUNT 3.55 10^6/uL (4.00-5.40); WHITE BLOOD COUNT 10.8 10^3/uL (4.0-10.0)
[2024-05-17 22:12] LABS: ERYTHROCYTE SEDIMENTATION RATE 34 mm/hr (0-20)
[2024-05-17 22:47] LABS: ALBUMIN 2.4 G/DL (3.2-5.2); ALKALINE PHOSPHATASE 68 U/L (46-116); ALT/SGPT < 9 U/L (7.0-40); AST/SGOT 16 U/L (<34); BILIRUBIN,TOTAL 0.3 MG/DL (0.3-1.2); BLOOD UREA NITROGEN 7 MG/DL (9-23); CALCIUM LEVEL 8.2 MG/DL (8.5-10.1); CARBON DIOXIDE LEVEL 24 MMOL/L (20-31); CHLORIDE LEVEL 108 MMOL/L (98-107); CREATININE FOR GFR 0.51 MG/DL (0.55-1.30); GLOMERULAR FILTRATION RATE > 60.0 (>60); GLUCOSE, FASTING 100 MG/DL (60-100); MAGNESIUM LEVEL 1.7 MG/DL (1.8-2.4); POTASSIUM SERUM 3.4 MMOL/L (3.5-5.1); SODIUM LEVEL 138 MMOL/L (136-145); TOTAL PROTEIN 5.4 G/DL (5.7-8.2)
[2024-05-17 22:59] LABS: HCG, SERUM QUANTITATIVE 21986.6 MIU/ML (<4.2)
[2024-05-17] MEDS ORDERED: MAGN400T2 PO (23:53)
[2024-05-17] MEDS ORDERED: B-2100TA PO (23:53)
[2024-05-17] MEDS ORDERED: FIOR1CAP PO (23:53)
[2024-05-18] MEDS: POTASSIUM CHLORIDE 10MEQ SR TABLET PO ONE (00:10)
[2024-05-18 01:10] VITALS: BP 130/63; O2SAT 98
== END 2024-05-18 01:36 | disposition home or self-care (01) ==
LOC: M ED 20:03
DX: G43.109 Migraine with aura, not intractable, without status migrainosus (principal)
CPT/HCPCS: 70544; 70551; 80053; 83735; 84702; 85025; 85652; 86140; 96365; 96366; 99284; J2919; J3475

== ENCOUNTER → 2024-05-20 | Outpatient (REF) ==
[~2024-05-20] MED LIST changes: +B-2100TA PO; +FIOR1CAP PO; +MAGN400T2 PO
== END ==
LOC: M EMP 13:56
PROVIDERS: ATTEND Family Medicine
DX: Z20.822 Contact with and (suspected) exposure to COVID-19 (principal)

== ENCOUNTER → 2024-05-27 | Outpatient (CLI) | payer BC ==
[2024-05-27 08:43] LABS: HEMATOCRIT 31.4 % (36.0-47.0); HEMOGLOBIN 10.6 g/dl (12.0-15.5); MEAN CORPUSCULAR HEMOGLOBIN 29.4 pg (27.0-33.0); MEAN CORPUSCULAR HGB CONC 33.8 g/dl (32.0-36.5); MEAN CORPUSCULAR VOLUME 87.2 fl (80.0-96.0); PLATELET COUNT, AUTOMATED 220 10^3/uL (150-450); WHITE BLOOD COUNT 9.5 10^3/uL (4.0-10.0)
[2024-05-27 09:09] LABS: GLUCOSE CHALLENGE TEST 1 HOUR 112 MG/DL (LESS THAN 140)
[2024-05-27 09:43] LABS: HIV 1&2 SCREEN NEGATIVE (NEGATIVE)
[2024-05-27 09:51] LABS: HEPATITIS C VIRUS ABY INDEX < 0.02 INDEX (<0.8)
[2024-05-27 10:22] LABS: GC DNA AMPLIFICATION NEGATIVE (NEGATIVE)
== END ==
LOC: M LAB 06:28
PROVIDERS: ATTEND Obstetrics & Gynecology
DX: Z34.80 Encounter for supervision of other normal pregnancy, unspecified trimester (principal)

== ENCOUNTER 2024-08-09 21:10 | Inpatient (IN) | payer BC ==
[~2024-08-09] VITALS: Ht 165.1 cm; Wt 98.4 kg
[2024-08-09] VITALS (7 sets, daily range): BP systolic 131–157; BP diastolic 85–98
[2024-08-09 23:14] LABS: HEMATOCRIT 31.1 % (36.0-47.0); HEMOGLOBIN 10.5 g/dl (12.0-15.5); MEAN CORPUSCULAR HEMOGLOBIN 28.2 pg (27.0-33.0); MEAN CORPUSCULAR HGB CONC 33.8 g/dl (32.0-36.5); MEAN CORPUSCULAR VOLUME 83.6 fl (80.0-96.0); PLATELET COUNT, AUTOMATED 112 10^3/uL (150-450); RED BLOOD COUNT 3.72 10^6/uL (4.00-5.40); WHITE BLOOD COUNT 9.9 10^3/uL (4.0-10.0)
[2024-08-09] MEDS: BETAMETHASONE SOLUSPAN 6MG/ML 5ML VIAL IM SCH (23:29)
[2024-08-09 23:33] LABS: TOTAL PROTEIN,RANDOM URINE 23.7 MG/DL (0.0-14.0)
[2024-08-09 23:38] LABS: CREATININE,RANDOM URINE 57.6 MG/DL
[2024-08-09 23:41] LABS: LDH LACTATE DEHYDROGENASE 243 U/L (120-246)
[2024-08-09 23:42] LABS: ALT/SGPT < 9 U/L (7.0-40); AST/SGOT 21 U/L (<34); BILIRUBIN,TOTAL 0.3 MG/DL (0.3-1.2); CREATININE FOR GFR 0.69 MG/DL (0.55-1.30); GLOMERULAR FILTRATION RATE > 60.0 (>60)
[2024-08-09 23:44] LABS: URIC ACID 5.3 MG/DL (3.1-7.8)
[2024-08-09] MEDS ORDERED: OXYTOCIN INJ 10UNITS/ML 1ML VIAL IM PRN (23:50)
[2024-08-09] MEDS ORDERED: CARBOPROST TROMETHAMINE 250 MCG/ML AMP IM PRN (23:50)
[2024-08-09] MEDS ORDERED: TRANEXAMIC ACID INJection 1,000 MG in NS 100 ML IV PRN (23:50)
[2024-08-09] MEDS ORDERED: LIDOCAINE 1% MDV 20ML VIAL INFIL PRN (23:50)
[2024-08-09] MEDS ORDERED: OXYTOCIN DRIP 30 UNITS in IV 1 EA IV PRN (23:50)
[2024-08-09] MEDS ORDERED: METHYLERGONOVINE MALEATE 0.2MG/ML 1ML VIAL IM PRN (23:50)
[2024-08-10] VITALS (20 sets, daily range): BP systolic 123–174; BP diastolic 70–92; O2SAT 96–97
[2024-08-10] MEDS: VANCOMYCIN/WATER FOR INJ 1,000 MG in IV 1 EA IV SCH (00:36)
[2024-08-10] MEDS ORDERED: MORPHINE 10 MG/ML 1ML VIAL IM ONE (05:10)
[2024-08-10] MEDS: OXYTOCIN DRIP 30 UNITS in IV 1 EA IV SCH (06:00)
[2024-08-10] MEDS: LR 1,000 ML IV SCH (06:00)
[2024-08-10] MEDS: LR 1,000 ML IV ONE (06:00)
[2024-08-10] MEDS: MORPHINE 10 MG/ML 1ML VIAL IM ONE (06:01)
[2024-08-10] MEDS: PROMETHAZINE 25MG/ML 1ML VIAL IV ONE (06:02)
[2024-08-10] MEDS: MORPHINE 10 MG/ML 1ML VIAL IV ONE (06:02)
[2024-08-10] MEDS ORDERED: * PENDING VANCOMYCIN ENTRY XX SCH (09:00)
[2024-08-10] MEDS ORDERED: ACETAMINOPHEN 325 MG TAB PO PRN (09:20)
[2024-08-10] MEDS ORDERED: DOCUSATE SODIUM 100MG CAPSULE PO PRN (09:20)
[2024-08-10] MEDS ORDERED: RHOGAM 300MCG (1500IU) INJ IM SCH (09:20)
[2024-08-10] MEDS ORDERED: ANUSOL HC CREAM 30GM TOP PRN (09:20)
[2024-08-10] MEDS ORDERED: DIBUCAINE 1% OINTMENT 30GM TOP PRN (09:20)
[2024-08-10] MEDS ORDERED: ACETAMINOPHEN 500 MG TAB PO PRN (09:20)
[2024-08-10] MEDS ORDERED: MOM 30ML SUSPENSION UDC PO PRN (09:20)
[2024-08-10] MEDS ORDERED: IBUPROFEN 800 MG TAB PO PRN (09:20)
[2024-08-10 09:45] LABS: HEPATITIS C VIRUS ABY INDEX < 0.02 INDEX (<0.8)
[2024-08-11] MEDS: IBUPROFEN 600MG TAB PO PRN (01:38)
[2024-08-11 06:05] VITALS: BP 134/84; O2SAT 98
[2024-08-11] MEDS: PRENATAL VITAMINS CHEWABLE TABLET PO SCH (09:07)
[2024-08-11 10:30] VITALS: BP 134/83; O2SAT 98
[2024-08-11] MEDS: FLUZONE VACCINE TRIVALENT PF(2024-25) 0.5ML SYRINGE IM.IMMUN ONE (15:43)
[2024-08-12] MEDS ORDERED: MEASLES,MUMPS,RUBELLA VACCINE INJ (MMR-II) SC.IMMUN ONE (09:00)
[2024-08-12] MEDS ORDERED: FLUZONE VACCINE TRIVALENT PF(2024-25) 0.5ML SYRINGE IM.IMMUN ONE (09:00)
== END 2024-08-11 17:17 | disposition home or self-care (01) | DRG 560 ==
LOC: M LDO 21:10 → M LDI 08-10 00:33 → M OBS 08-10 11:40
PROVIDERS: ADMIT Advanced Practice Midwife; ATTEND Advanced Practice Midwife
PROC: 10E0XZZ Delivery of Products of Conception, External Approach (ICD-10-PCS; principal; 2024-08-10)
DX: O14.94 Unspecified pre-eclampsia, complicating childbirth (principal); Z88.0 Allergy status to penicillin; Z3A.36 36 weeks gestation of pregnancy; Z79.899 Other long term (current) drug therapy; Z37.0 Single live birth

== ENCOUNTER → 2024-12-30 | Outpatient (REF) | payer BC ==
[2025-01-01 13:01] LABS: HPV APTIMA Not Detected (Not Detected)
== END ==
LOC: M PLALAB 11:04
PROVIDERS: ATTEND Advanced Practice Midwife
DX: Z12.4 Encounter for screening for malignant neoplasm of cervix (principal); Z11.51 Encounter for screening for human papillomavirus (HPV); R87.610 Atypical squamous cells of undetermined significance on cytologic smear of cervix (ASC-US)
CPT/HCPCS: 87624; G0123

== ENCOUNTER → 2025-06-30 | Outpatient (CLI) | payer BC ==
[~2025-06-30] MED LIST changes: -IBUP-1022 PO; +IBUP600T42 PO
[2025-06-30 14:15] LABS: HCG, SERUM QUALITATIVE NEGATIVE (NEGATIVE)
== END ==
LOC: M PLALAB 11:27
PROVIDERS: ATTEND Advanced Practice Midwife
DX: Z32.01 Encounter for pregnancy test, result positive (principal); Z87.59 Personal history of other complications of pregnancy, childbirth and the puerperium

== ENCOUNTER → 2025-10-11 | Outpatient (CLI) | payer BC ==
[2025-10-11 16:33] LABS: Trichomonas vaginalis (AMP) NOT DETECTED (NEGATIVE)
[2025-10-11 16:57] LABS: GC DNA AMPLIFICATION NEGATIVE (NEGATIVE)
[2025-10-12 01:33] LABS: HIV 1&2 SCREEN NEGATIVE (NEGATIVE)
[2025-10-12 01:41] LABS: HEPATITIS C VIRUS ABY INDEX 0.05 INDEX (<0.8)
== END ==
LOC: M PLALAB 13:46
PROVIDERS: ATTEND Advanced Practice Midwife
DX: Z11.3 Encounter for screening for infections with a predominantly sexual mode of transmission (principal)